=== PATIENT | female | born 1940 | race Caucasian/White ===

== ENCOUNTER → 2016-11-07 | Outpatient (CLI) | payer BC ==
[~2016-11-07] MED LIST: ACET1TAB84 PO; ADVIN50050 INH; ASPI81TA28 PO; B-COTAB18 PO; CHOL1000 PO; CIPR-255 PO; CLIN300C2 PO; GLC/500 PO; GLUCTAB7 PO; GUAI1TAB20 PO; HYDR25TA4 PO; LISI-461 PO; LUTE6TAB PO; METO25TA3 PO; PRED1SUS3 OPR; PRT/20 PO; RANITAB PO
[2016-11-07 10:17] LABS: ESTIMATED AVERAGE GLUCOSE 123 mg/dl; HA1C FLAG Normal (Normal)
--- NOTE | 2016-11-13 14:21 | CODING QUERY MEDICAL NECESSITY ---
CQSUPPORTING DIAGNOSIS NEEDED A supporting diagnosis is required for the test/procedure performed on this patient in order for us to be reimbursed by the patient's insurance. Please provide a supporting diagnosis for the following test/procedure listed below next to the test name along with your signature. *If there is no additional diagnosis for this patient that would support the following test/procedure please document that below next to the test/procedure. Test(s)/Procedure(s) that require a supporting diagnosis: DOS 11/07/16 GLYCATED HEMOGLOBIN TEST Provider Signature: Date: Thank you Dorothy James [facility] Information Management Once completed, please kindly fax back to [phone] For questions please call [phone]
== END | disposition home or self-care (01) ==
LOC: C.LABFOXMH 09:04
PROVIDERS: ATTEND Internal Medicine
DX: E88.81 Metabolic syndrome and other insulin resistance (principal); E11.65 Type 2 diabetes mellitus with hyperglycemia

== ENCOUNTER → 2016-11-27 | Outpatient (CLI) | payer BC ==
[~2016-11-27] MED LIST changes: -ADVIN50050 INH; -CIPR-255 PO; -CLIN300C2 PO; -METO25TA3 PO; -PRT/20 PO
[2016-11-27 08:46] LABS: BLOOD UREA NITROGEN 17 mg/dl (7-18); BUN/CREATININE RATIO 24.2 (10-20); CARBON DIOXIDE 27 mmol/L (21-32); CHLORIDE 105 mmol/L (98-107); CREATININE 0.69 mg/dl (0.60-1.20); GLUCOSE 98 mg/dl (70-99); POTASSIUM 4.2 mmol/L (3.5-5.1); SODIUM 139 mmol/L (136-145)
[2016-11-27 08:50] LABS: CALCIUM 9.2 mg/dl (8.5-10.1)
== END ==
LOC: C.LABFOXMH 08:06
PROVIDERS: ATTEND Internal Medicine
DX: I10 Essential (primary) hypertension (principal)

== ENCOUNTER → 2016-12-10 | Day surgery (SDC) | payer BC ==
[2016-11-21 14:44] VITALS: Ht 170.2 cm; Wt 105.5 kg
[~2016-12-10] VITALS: Ht 170.2 cm; Wt 105.5 kg
[~2016-12-10] MED LIST changes: +500ML BSS 0.3ML EPI 1:1000PF IRRIG ONE; +ACETAMINOPHEN 325 MG TAB PO PRN; +AMVISC PLUS 0.8ML SYRINGE INT OCU ONE; +ATROPINE SULFATE 0.1 MG/ML 5ML SYR IV PRN; +BSS FLUSH ONE; +EpHEDrine SULFATE INJ 50 MG/ML AMP IV PRN; +EpINEphrine INJ 1MG/ML AMP 1 MG/ML AMP ONE; +LACTATED RINGER'S 1000ML 500 ML IV SCH; +LIDOCAINE 3.5% OPH GEL PER APPLICATION CHARGE ONE; +LIDOCAINE HCL 1% MPF 2 ML VIAL ONE; +MIDAZOLAM HCL 1 MG/ML 2ML VIAL ONE; +OCUCOAT 1 ML SOLN IO ONE; +POVIDONE-IODINE OP SOLN 30 ML BTL ONE; +PROPARACAINE 0.5% OP SOLN PER DROP CHARGE OPR SCH; +TOBRAMYCIN/DEXAMETHASONE OPH OINT PER APPLN CHARGE ONE
[2016-12-10] MEDS: PHENYLEPHRINE HCL 2.5% OP SOLN PER DROP CHARGE OPR SCH ×2 (08:45→08:50)
[2016-12-10] MEDS: TROPICAMIDE 1% OP SOLN PER DROP CHARGE OPR SCH ×2 (08:46→08:51)
[2016-12-10] MEDS: CYCLOPENTOLATE HCL 1% OP SOLN PER DROP CHARGE OPR SCH ×2 (08:47→08:52)
[2016-12-10] MEDS: KETOROLAC 0.5% OP SOLN PER DROP CHARGE OPR SCH ×2 (08:48→08:53)
[2016-12-10] MEDS: GATIFLOXACIN OP SOLN PER DROP CHARGE OPR SCH ×2 (08:49→08:59)
--- NOTE | 2016-12-10 09:06 | History & Physical Bridge - SC ---
H&P Re-Evaluation Bridge Note: I have examined the patient, reviewed the History & Physical and in the interval since the performance of the History & Physical I have noted the following changes of clinical significance: Diagnosis: Right Cataract Procedure: Right Cataract Removal with Lens Implant No changes noted
--- NOTE | 2016-12-10 10:20 | Discharge Instructions-SurgCtr ---
Discharge Instructions Date of Service December 10, 2016. Visit Reason for Visit: Cataract Right Eye Discharge Discharge Diagnosis / Problem: cataract Discharge Goals Goal(s): Improve function Medications Stopped Medications Name(s): metformin, last dose 12/07/16 Activity Recommendations Activity Limitations: per Instructions/Follow-up section Anesthesia . Post Anesthesia Instructions: If you have had General Anesthesia or IV Sedation: * Do not drive today. * Resume driving when surgeon permits. * Do not make important decisions or sign legal documents today. * Call surgeon for: 1. Temperature elevations greater than 101 degrees F. 2. Uncontrollable pain. 3. Excessive bleeding. 4. Persistent nausea and vomiting. 5. Medication intolerance (nausea, vomiting or rash). * For nausea and vomiting use only clear liquids such as: tea, soda, bouillon until nausea subsides, then gradually increase diet as tolerated. * If you have any concerns or questions, call your surgeon's office. If physician is unavailable and it is an emergency, call 911 or go to the nearest emergency room. . Instructions / Follow-Up Instructions / Follow-Up ACTIVITY RECOMMENDATIONS: * No strenuous lifting, jogging or running for 4 days * No swimming or yard work for 1 week. * Limited bending is permitted, such as putting on shoes. RETURN TO SCHOOL/WORK: No work until seen by physician in office. MEDICATIONS: Resume previous medications unless instructed otherwise by your surgeon. This includes eye drops for glaucoma. Zymaxid/Gatifloxacin (giles cap) - one drop every 2 hours until bedtime Nevanac/Ilevro/Prolensa/Ketorolac (clark cap) - one drop every 4 hours until bedtime Prednisolone (white/pink cap, SHAKE WELL) - one drop every 2 hours until bedtime Starting tomorrow - all 3 drops every 4 hours until seen in the office Optive drops - as needed for discomfort SPECIAL CARE INSTRUCTIONS: * Wear eyeshield when sleeping, for four nights. * You may wear your own glasses or sunglasses while awake. * You may read or watch TV * You may shower and wash your face, but be gentle around the eye and pat dry. * Blurry vision and mild irritation are normal. * Call office if pain is more severe or vision becomes dark at . FOLLOW UP VISIT: Follow-up with Dr Mcdermott tomorrow. Diet Recommendations Home Diet: resume previous diet Procedures Procedures Performed: Right Cataract Phacoemulsification With Intraocular Lens Implant Pending Studies Studies pending at discharge: no Medical Emergencies . Who to Call and When: Medical Emergencies: If at any time you feel your situation is an emergency, please call 911 immediately. . Non-Emergent Contact Non-Emergency issues call your: Labor Supervisor . . "Provider Documentation" section prepared by Zachary Mcdermott. .
--- NOTE | 2016-12-10 10:21 | [facility] Operative Report ---
Operative Report Date of Service December 10, 2016. Operative Report 1. PREOPERATIVE DIAGNOSIS: Cataract of the right eye. 2. POSTOPERATIVE DIAGNOSIS: Same. 3. PROCEDURE: Phacoemulsification with intraocular lens implantation of the right eye. SURGEON: Dr. Zachary Mcdermott. ANESTHESIA: Topical Lidocaine gel, 1% Non- Preserved intracameral Lidocaine, and monitored intravenous sedation. INDICATIONS FOR THE PROCEDURE: The patient is a 76 - year-old female with a history of cataract of the right eye causing significant visual impairment. The details of the proposed procedure were explained to the patient who asked appropriate questions and following discussion of all risks, benefits and alternatives agreed to have the procedure done. 4. OPERATION AND FINDINGS: DESCRIPTION OF PROCEDURE: After informed consent was obtained, the patient was brought to the Operating [facility] at the [facility]. The patient was placed in a supine position and then the right eye was prepped and draped in the usual sterile fashion for intraocular surgery. A drop of topical Lidocaine gel was placed in the operative eye. A wire lid speculum was then placed in the fornices. A corneal paracentesis was then created temporally. The Non-Preserved Lidocaine was then instilled into the anterior chamber. The anterior chamber was then pressurized with viscoelastic. A 2.0 mm clear corneal incision was then created temporally. A cystotome was inserted into the anterior chamber and used to create a tear in the anterior lens capsule. This capsular tear was then used to create a small flap and the flap was dragged in a counterclockwise direction in order to create a continuous curvilinear capsulorrhexis. Hydrodissection was accomplished with balanced salt solution. Phacoemulsification of the lens nucleus was then performed in a standard [id number]-[id number] technique. The phaco time was 27 seconds with an average power of 11 %. The remaining cortical material was removed using irrigation aspiration. The capsular bag was then filled with viscoelastic. A Bausch & Lomb MI60L +20.5 diopters lens was then loaded into the injector and injected into the capsular bag. The remaining viscoelastic was removed with the irrigation aspiration handpiece. The wound was hydrated and then checked and found to be watertight. The intraocular pressure was checked and found to be adequate. The wire lid speculum was removed and the patient's face was cleaned and dried. TobraDex ointment was placed in the inferior fornix. The patient was discharged to the Recovery Room having tolerated the procedure well. There were no complications. The patient will be seen tomorrow in the office for follow-up. I attest to the content of the Intraoperative Record and any orders documented therein. Any exceptions are noted below.
[2016-12-10 10:23] VITALS: TEMP 36.3
--- NOTE | 2016-12-10 10:25 | Anesthesia Progress Nt - [facility] ---
Anesthesia Post Op Note Date & Time December 10, 2016 at 10:25 Vital Signs Pain Intensity: 0 Vital Signs Past 12 Hours Date Time Temp Pulse Resp B/P Pulse Ox O2 Delivery O2 Flow Rate FiO2 12/10/16 08:36 36.6 65 16 104/70 97 Room Air Notes Mental Status: alert / awake / arousable, participated in evaluation Pt Amnestic to Procedure: Yes Nausea / Vomiting: adequately controlled Pain: adequately controlled Airway Patency, RR, SpO2: stable & adequate BP & HR: stable & adequate Hydration State: stable & adequate Anesthetic Complications: no major complications apparent
[2016-12-10 10:55] VITALS: BP 135/70; PULSE 72; O2SAT 97
== END | disposition home or self-care (01) ==
LOC: X.SURG 08:18
PROVIDERS: ATTEND Ophthalmology
DX: H26.9 Unspecified cataract (principal); I10 Essential (primary) hypertension; J45.909 Unspecified asthma, uncomplicated; E11.36 Type 2 diabetes mellitus with diabetic cataract; G47.33 Obstructive sleep apnea (adult) (pediatric); Z88.0 Allergy status to penicillin; E66.9 Obesity, unspecified; Z68.36 Body mass index [BMI] 36.0-36.9, adult

== ENCOUNTER → 2016-12-31 | Day surgery (SDC) | payer BC ==
[2016-12-26 13:02] VITALS: Ht 170.2 cm; Wt 105.5 kg
[~2016-12-31] VITALS: Ht 170.2 cm; Wt 105.5 kg
[~2016-12-31] MED LIST changes: -PRED1SUS3 OPR; +PROPARACAINE 0.5% OP SOLN PER DROP CHARGE OPL SCH; -PROPARACAINE 0.5% OP SOLN PER DROP CHARGE OPR SCH
[2016-12-31] MEDS: PHENYLEPHRINE HCL 2.5% OP SOLN PER DROP CHARGE OPL SCH ×2 (10:41→10:47)
[2016-12-31] MEDS: TROPICAMIDE 1% OP SOLN PER DROP CHARGE OPL SCH ×2 (10:42→10:48)
[2016-12-31] MEDS: CYCLOPENTOLATE HCL 1% OP SOLN PER DROP CHARGE OPL SCH ×2 (10:43→10:49)
[2016-12-31] MEDS: KETOROLAC 0.5% OP SOLN PER DROP CHARGE OPL SCH ×2 (10:44→10:50)
[2016-12-31] MEDS: GATIFLOXACIN OP SOLN PER DROP CHARGE OPL SCH ×2 (10:46→10:57)
--- NOTE | 2016-12-31 11:16 | History & Physical Bridge - SC ---
H&P Re-Evaluation Bridge Note: I have examined the patient, reviewed the History & Physical and in the interval since the performance of the History & Physical I have noted the following changes of clinical significance: No changes noted
--- NOTE | 2016-12-31 11:45 | Discharge Instructions-SurgCtr ---
Discharge Instructions Date of Service Dec 31, 2016. Visit Reason for Visit: Cataract Left Eye Discharge Discharge Diagnosis / Problem: cataract Discharge Goals Goal(s): Improve function Activity Recommendations Activity Limitations: per Instructions/Follow-up section Anesthesia . Post Anesthesia Instructions: If you have had General Anesthesia or IV Sedation: * Do not drive today. * Resume driving when surgeon permits. * Do not make important decisions or sign legal documents today. * Call surgeon for: 1. Temperature elevations greater than 101 degrees F. 2. Uncontrollable pain. 3. Excessive bleeding. 4. Persistent nausea and vomiting. 5. Medication intolerance (nausea, vomiting or rash). * For nausea and vomiting use only clear liquids such as: tea, soda, bouillon until nausea subsides, then gradually increase diet as tolerated. * If you have any concerns or questions, call your surgeon's office. If physician is unavailable and it is an emergency, call 911 or go to the nearest emergency room. . Instructions / Follow-Up Instructions / Follow-Up ACTIVITY RECOMMENDATIONS: * No strenuous lifting, jogging or running for 4 days * No swimming or yard work for 1 week. * Limited bending is permitted, such as putting on shoes. RETURN TO SCHOOL/WORK: No work until seen by physician in office. MEDICATIONS: Resume previous medications unless instructed otherwise by your surgeon. This includes eye drops for glaucoma. Zymaxid/Gatifloxacin (giles cap) - one drop every 2 hours until bedtime Nevanac/Ilevro/Prolensa/Ketorolac (clark cap) - one drop every 4 hours until bedtime Prednisolone (white/pink cap, SHAKE WELL) - one drop every 2 hours until bedtime Starting tomorrow - all 3 drops every 4 hours until seen in the office Optive drops - as needed for discomfort SPECIAL CARE INSTRUCTIONS: * Wear eyeshield when sleeping, for four nights. * You may wear your own glasses or sunglasses while awake. * You may read or watch TV * You may shower and wash your face, but be gentle around the eye and pat dry. * Blurry vision and mild irritation are normal. * Call office if pain is more severe or vision becomes dark at . FOLLOW UP VISIT: Follow-up with Dr Mcdermott tomorrow. Diet Recommendations Home Diet: resume previous diet Procedures Procedures Performed: Left Eye Cataract Phacoemulsification With Intraocular Lens Implant Pending Studies Studies pending at discharge: no Medical Emergencies . Who to Call and When: Medical Emergencies: If at any time you feel your situation is an emergency, please call 911 immediately. . Non-Emergent Contact Non-Emergency issues call your: Director Of Athletics . . "Provider Documentation" section prepared by Zachary Mcdermott. .
--- NOTE | 2016-12-31 11:46 | [facility] Operative Report ---
Operative Report Date of Service Dec 31, 2016. Operative Report 1. PREOPERATIVE DIAGNOSIS: Cataract of the left eye. 2. POSTOPERATIVE DIAGNOSIS: Same. 3. PROCEDURE: Phacoemulsification with intraocular lens implantation of the left eye. SURGEON: Dr. Zachary Mcdermott. ANESTHESIA: Topical Lidocaine gel, 1% Non- Preserved intracameral Lidocaine, and monitored intravenous sedation. INDICATIONS FOR THE PROCEDURE: The patient is a 76 - year-old female with a history of cataract of the left eye causing significant visual impairment. The details of the proposed procedure were explained to the patient who asked appropriate questions and following discussion of all risks, benefits and alternatives agreed to have the procedure done. 4. OPERATION AND FINDINGS: DESCRIPTION OF PROCEDURE: After informed consent was obtained, the patient was brought to the Operating Room at the [facility]. The patient was placed in a supine position and then the left eye was prepped and draped in the usual sterile fashion for intraocular surgery. A drop of topical Lidocaine gel was placed in the operative eye. A wire lid speculum was then placed in the fornices. A corneal paracentesis was then created temporally. The Non-Preserved Lidocaine was then instilled into the anterior chamber. The anterior chamber was then pressurized with viscoelastic. A 2.0 mm clear corneal incision was then created temporally. A cystotome was inserted into the anterior chamber and used to create a tear in the anterior lens capsule. This capsular tear was then used to create a small flap and the flap was dragged in a counterclockwise direction in order to create a continuous curvilinear capsulorrhexis. Hydrodissection was accomplished with balanced salt solution. Phacoemulsification of the lens nucleus was then performed in a standard pyvmak-yrd-hqmrslm technique. The phaco time was 25 seconds with an average power of 17 %. The remaining cortical material was removed using irrigation aspiration. The capsular bag was then filled with viscoelastic. A Bausch & Lomb MI60L +18.5 diopters lens was then loaded into the injector and injected into the capsular bag. The remaining viscoelastic was removed with the irrigation aspiration handpiece. The wound was hydrated and then checked and found to be watertight. The intraocular pressure was checked and found to be adequate. The wire lid speculum was removed and the patient's face was cleaned and dried. TobraDex ointment was placed in the inferior fornix. The patient was discharged to the Recovery Room having tolerated the procedure well. There were no complications. The patient will be seen tomorrow in the office for follow-up. I attest to the content of the Intraoperative Record and any orders documented therein. Any exceptions are noted below.
[2016-12-31 11:47] VITALS: TEMP 36.3
[2016-12-31 12:10] VITALS: BP 105/66; PULSE 60; O2SAT 99
--- NOTE | 2016-12-31 12:40 | Anesthesia Progress Nt - [facility] ---
Anesthesia Post Op Note Date & Time Dec 31, 2016 at 12:39 Vital Signs Pain Intensity: 0 Vital Signs Past 12 Hours Date Time Temp Pulse Resp B/P (MAP) Pulse Ox O2 Delivery O2 Flow Rate FiO2 12/31/16 12:10 60 16 105/66 (79) 99 Room Air 12/31/16 11:47 36.3 65 16 118/71 (87) 99 Room Air 12/31/16 10:36 36.4 63 20 135/84 (101) 98 Room Air Notes Mental Status: alert / awake / arousable, participated in evaluation Pt Amnestic to Procedure: Yes Nausea / Vomiting: adequately controlled Pain: adequately controlled Airway Patency, RR, SpO2: stable & adequate BP & HR: stable & adequate Hydration State: stable & adequate Anesthetic Complications: no major complications apparent
== END | disposition home or self-care (01) ==
LOC: X.SURG 09:44
PROVIDERS: ATTEND Ophthalmology
DX: H26.9 Unspecified cataract (principal); I10 Essential (primary) hypertension; J45.909 Unspecified asthma, uncomplicated; G47.33 Obstructive sleep apnea (adult) (pediatric); Z98.41 Cataract extraction status, right eye; Z68.36 Body mass index [BMI] 36.0-36.9, adult; Z96.643 Presence of artificial hip joint, bilateral; Z88.0 Allergy status to penicillin

== ENCOUNTER → 2017-03-11 | Outpatient (CLI) | payer BC ==
[~2017-03-11] MED LIST changes: -500ML BSS 0.3ML EPI 1:1000PF IRRIG ONE; -ACETAMINOPHEN 325 MG TAB PO PRN; -AMVISC PLUS 0.8ML SYRINGE INT OCU ONE; -ATROPINE SULFATE 0.1 MG/ML 5ML SYR IV PRN; -BSS FLUSH ONE; -EpHEDrine SULFATE INJ 50 MG/ML AMP IV PRN; -EpINEphrine INJ 1MG/ML AMP 1 MG/ML AMP ONE; -LACTATED RINGER'S 1000ML 500 ML IV SCH; -LIDOCAINE 3.5% OPH GEL PER APPLICATION CHARGE ONE; -LIDOCAINE HCL 1% MPF 2 ML VIAL ONE; -MIDAZOLAM HCL 1 MG/ML 2ML VIAL ONE; -OCUCOAT 1 ML SOLN IO ONE; -POVIDONE-IODINE OP SOLN 30 ML BTL ONE; -PROPARACAINE 0.5% OP SOLN PER DROP CHARGE OPL SCH; -TOBRAMYCIN/DEXAMETHASONE OPH OINT PER APPLN CHARGE ONE
[2017-03-11 10:34] LABS: BLOOD UREA NITROGEN 14 mg/dl (7-18); BUN/CREATININE RATIO 17.3 (10-20); CARBON DIOXIDE 27 mmol/L (21-32); CHLORIDE 106 mmol/L (98-107); CREATININE 0.79 mg/dl (0.60-1.20); GLUCOSE 90 mg/dl (70-99); POTASSIUM 4.6 mmol/L (3.5-5.1); SODIUM 137 mmol/L (136-145)
[2017-03-11 10:38] LABS: ESTIMATED AVERAGE GLUCOSE 126 mg/dl; HA1C FLAG Normal (Normal)
== END | disposition home or self-care (01) ==
LOC: C.LABFOXMH 08:53
PROVIDERS: ATTEND Internal Medicine
DX: E11.9 Type 2 diabetes mellitus without complications (principal)

== ENCOUNTER → 2017-04-08 | Outpatient (CLI) | payer BC ==
--- NOTE | 2017-04-09 07:56 | MAMMOGRAPHY REPORT ---
BILATERAL DIGITAL SCREENING MAMMOGRAM WITH CAD: 04/08/2017 CLINICAL HISTORY: Routine screening. Patient has no complaints. TECHNIQUE: Bilateral CC and MLO views were obtained. Current study was also evaluated with a Compute r Aided Detection (CAD) system. COMPARISON: Comparison is made to exams dated: 04/05/2016 mammogram, 04/04/2015 mammogram, 12/01/2013 m ammogram, 11/26/2012 mammogram, 11/12/2011 mammogram, and 01/04/2011 mammogram - [facility]. BREAST COMPOSITION: There are scattered areas of fibroglandular density in both breasts. FINDINGS: There is a round, 5.4 mm nodular asymmetry in the lateral, middle to posterior right breas t on the CC view, and a 4.9 mm nodular asymmetry in the middle one third of the right breast along th e posterior nipple line on the CC view. These are not definitely seen on the MLO view but are newly visualized comparing to prior mammograms. Additional spot compression tomosynthesis views and possib le ultrasound are recommended. There are a few benign rim calcifications in the breasts. No other suspicious mass, architectural dis tortion or cluster of microcalcifications is seen. IMPRESSION: ACR BI-RADS CATEGORY 0: INCOMPLETE EVALUATION: NEED ADDITIONAL IMAGING EVALUATION The 5.4 mm rounded nodular asymmetry in the lateral right breast, and 4.9 mm nodular asymmetry along the posterior nipple line in the right breast need additional imaging evaluation. The patient will be called to schedule an appointment. Approximately 10% of breast cancers are not detected with mammography. A negative mammographic report should not delay biopsy if a clinically suggestive mass is present. Isela Caal M.D. ay/:04/08/2017 15:58:59 Bulk Receiver: Maeve HEIN(R)(M), [facility] letter sent: Addl Imaging 0 BI-RADS Code: ACR BI-RADS Category 0: Incomplete Evaluation: Need Additional Imaging Evaluation
== END | disposition home or self-care (01) ==
LOC: C.MAMM 14:43
PROVIDERS: ATTEND Obstetrics & Gynecology
DX: Z12.31 Encounter for screening mammogram for malignant neoplasm of breast (principal); N64.89 Other specified disorders of breast

== ENCOUNTER → 2017-04-18 | Outpatient (CLI) | payer BC ==
--- NOTE | 2017-04-18 15:48 | MAMMOGRAPHY REPORT ---
UNILATERAL RIGHT DIGITAL DIAGNOSTIC MAMMOGRAM TOMOSYNTHESIS WITH CAD AND TARGETED RIGHT ULTRASOUND: 1 CLINICAL HISTORY: Callback from screening mammogram for right breast asymmetries. TECHNIQUE: Breast tomosynthesis in addition to standard 2D mammography was performed. Current study was also evaluated with a Computer Aided Detection (CAD) system. Spot compression right CC and MLO 2 -D and tomosynthesis images were obtained. COMPARISON: Comparison is made to exams dated: 04/08/2017 mammogram, 04/05/2016 mammogram, 04/04/2015 m ammogram, 12/01/2013 mammogram, 11/26/2012 mammogram, and 11/12/2011 mammogram - [facility]. BREAST COMPOSITION: There are scattered areas of fibroglandular density in the right breast. FINDINGS: The previously described nodular asymmetry seen within the right lateral posterior breast is less prominent on the additional spot compression view, with a possible round partially circumscri bed and partially obscured mass seen on the tomosynthesis images in the right upper outer quadrant in this region on the spot compression views. The nodular density appears similar to some of the prior exams including the spot compression cc view from the November 2011 exam. The other asymmetry within the right breast along the posterior nipple line on the cc view effaces to a baseline appearance on the additional views, and appears similar to multiple prior exams including the 2008 exam, and has the ap pearance of normal fibroglandular tissue on the tomosynthesis images. Targeted ultrasound was performed of the right breast of the region of the right lateral posterior br east asymmetry. In the right breast at 9:00, 9 cm from the nipple, there is an oval circumscribed an echoic mass which measures 5 x 3 mm. This is felt to correspond with the mammographic mass and is be nign and compatible with a simple cyst. Incidentally seen in the right breast at 10:00 far laterally is a morphologically normal intramammary lymph node measuring 8 x 7 mm. No suspicious solid masses were evident. IMPRESSION: ACR BI-RADS CATEGORY 2: BENIGN, TARGETED ULTRASOUND ACR BI-RADS CATEGORY 2: BENIGN 1. Right breast asymmetry along the posterior nipple line effaces to a baseline appearance on the ad ditional views and is benign and compatible with normal fibroglandular tissue. 2. Right lateral posterior breast asymmetry appears similar to prior exams on the additional views i ncluding the November 2011 exam. A benign 5 mm cyst is seen in the right breast at 9:00 on ultrasound, wh ich is felt to correspond with the stable mammographic finding. There is no mammographic or targeted sonographic evidence of malignancy. A 1 year screening mammogram is recommended. The patient has been verbally notified of the results. Approximately 10% of breast cancers are not detected with mammography. A negative mammographic report should not delay biopsy if a clinically suggestive mass is present. Angelica Zazueta M.D. ah/:04/18/2017 11:28:52 Cardiac Technologist: Sean HEIN(Jacinto)(M), [facility] letter sent: Normal 1/2 BI-RADS Code: ACR BI-RADS Category 2: Benign Ultrasound BI-RADS: ACR BI-RADS Category 2: Benign
== END | disposition home or self-care (01) ==
LOC: C.MAMM 10:52
PROVIDERS: ATTEND Obstetrics & Gynecology
DX: N64.89 Other specified disorders of breast (principal); N60.01 Solitary cyst of right breast

== ENCOUNTER → 2017-07-21 | Outpatient (CLI) | payer BC ==
[2017-07-21 09:32] LABS: ALBUMIN 3.3 gm/dl (3.4-5.0); ALT/SGPT 27 U/L (12-78); BLOOD UREA NITROGEN 17 mg/dl (7-18); CARBON DIOXIDE 28 mmol/L (21-32); CREATININE 0.77 mg/dl (0.60-1.20); GLUCOSE 96 mg/dl (70-99); POTASSIUM 4.3 mmol/L (3.5-5.1); SODIUM 138 mmol/L (136-145)
[2017-07-21 09:36] LABS: ALKALINE PHOSPHATASE 79 U/L (45-117); AST/SGOT 17 U/L (15-37); CHOLESTEROL 165 mg/dl (0-200); LDL CHOLESTEROL CALCULATED 84 mg/dl
[2017-07-21 09:57] LABS: HEMOGLOBIN A1C 5.9 % (4.5-5.6)
== END | disposition home or self-care (01) ==
LOC: C.LABFOXMH 08:39
PROVIDERS: ATTEND Internal Medicine
DX: E11.9 Type 2 diabetes mellitus without complications (principal)

== ENCOUNTER → 2017-08-05 | Outpatient (CLI) | payer BC | END | disposition home or self-care (01) | LOC: C.LABFOXMH 16:09 | PROVIDERS: ATTEND Internal Medicine | DX: R35.0 Frequency of micturition (principal); R10.9 Unspecified abdominal pain ==

== ENCOUNTER → 2017-11-27 | Outpatient (CLI) | payer BC ==
[2017-11-27 10:24] LABS: BLOOD UREA NITROGEN 16 mg/dl (7-18); CALCIUM 8.9 mg/dl (8.5-10.1); CARBON DIOXIDE 28 mmol/L (21-32); CREATININE 0.82 mg/dl (0.60-1.20); GLUCOSE 95 mg/dl (70-99); POTASSIUM 4.2 mmol/L (3.5-5.1); SODIUM 138 mmol/L (136-145)
[2017-11-27 11:15] LABS: HEMOGLOBIN A1C 5.8 % (4.5-5.6)
== END | disposition home or self-care (01) ==
LOC: C.LABFOXMH 09:31
PROVIDERS: ATTEND Internal Medicine
DX: E11.9 Type 2 diabetes mellitus without complications (principal)

== ENCOUNTER 2018-08-04 13:10 | Inpatient (IN) ==
[2018-08-04 13:45] LABS: Basophils # (auto) 0.05 K/uL (0-0.2); Basophils % (auto) 0.5 %; Eosinophils # (auto) 0.12 K/uL (0-0.5); Eosinophils % (auto) 1.3 %; Hematocrit (blood only) 40.7 % (37-47); Hemoglobin 13.2 g/dL (12.0-16.0); Immature Granulocytes # (auto) 0.02 K/uL (0.00-0.02); Immature Granulocytes % (auto) 0.2 %; Lymphocytes % (auto) 26.9 %; Mean Corpuscular Hgb Conc 32.4 g/dL (32-36); Mean Corpuscular Volume 92.9 fL (80-100); Mean Platelet Volume 11.6 fL (7.4-10.4); Monocytes # (auto) 0.54 K/uL (0.11-0.59); Monocytes % (auto) 5.8 %; Neutrophils # (auto) 6.08 K/uL (1.4-6.5); Neutrophils % (auto) 65.3 %; Platelet Count 249 K/uL (130-400); RDW Coefficient of Variation 13.7 % (11.5-14.5); RDW Standard Deviation 46.6 fL (36.4-46.3); Red Blood Count 4.38 M/uL (4.2-5.4); White Blood Count 9.31 K/uL (4.8-10.8)
[2018-08-04 13:54] LABS: Albumin Level 3.6 gm/dl (3.4-5.0); BUN Creatinine Ratio 21.9 (10-20); Calcium 9.1 mg/dl (8.5-10.1); Creatinine Clr Calc Pharmacy 54.3 ml/min; Est GFR (African American) 57.1; Est GFR (Non-African American) 49.3; Magnesium 2.3 mg/dl (1.8-2.4); Partial Thromboplastin Time 26.1 Seconds (21.0-31.0); Prothrombin Time 10.2 Seconds (9.0-12.0)
--- NOTE | 2018-08-04 13:59 | XRay Report ---
XR chest 1V portable CLINICAL HISTORY: weakness COMPARISON STUDY: 07/21/2018 FINDINGS: The heart remains enlarged. There is no focal pulmonary consolidation. There is no failure. There are no pleural effusions.[ IMPRESSION: Cardiomegaly. No acute findings. Electronically signed by: Fuad Davila M.D. 08/04/2018 1:58 PM
[2018-08-04 14:05] LABS: Albumin Globulin Ratio 0.9 (0.9-2); Bilirubin,Total 0.4 mg/dl (0.2-1); Globulin 4.1 gm/dl (2.5-4.0); Total Protein 7.7 gm/dl (6.4-8.2)
--- NOTE | 2018-08-04 14:44 | History & Physical Report ---
Date of Service August 04, 2018 Assessment & Plan (1) Third degree heart block: plan for pacemaker tomorrow NPO after midnight admit to ICU with pacer pads currently patient has systolic pressure in 140's, mentating normally (2) SOB (shortness of breath): likely due to bradycardia cannot increase cardiac output when exercising should improve with pacer (3) Idiopathic cardiomyopathy: diagnosed on outpatient echo euvolemic on exam (4) HTN (hypertension): BP stable takes lisinopril and HCTZ at home hold these for time being (5) DM type 2 (diabetes mellitus, type 2): hold Metformin use Novolog PRN diabetic diet History of Present Illness Chief Complaint: I feel short of breath Primary Care Provider: [facility] 78 yo female with limited medical history of HTN and DM type II, was recently diagnosed with 2nd degree AV block type II with plans for a pacemaker on with Dr. Smith. Over the past two days she has noticed more dyspnea, no exercise tolerance, gets short of breath just walking around house. She had a single episode of chest pain when walking but resolved very quickly. She took her pulse this morning out of curiosity and it was in the 30's. Her friend advised her to come to the ED immediately. She is her with her . Her pulse in the ED has been 30-40's. EKG now shows complete AV block with dissociation. Her blood pressure has been normal, 140's systolic. She feels fine laying down in bed, she says she is hungry. Medical history significant for hypertension, DM type II. Family history significant for stroke in her mother, father lived to be 99, grandmother lived to 103. one brother from multiple sclerosis and another brother has COPD no history of smoking or heavy alcohol use ED physician talked with Dr. Smith over the phone, plan for pacer tomorrow Allergies Allergy/AdvReac Type Severity Reaction Status Date / Time bee venom protein (honey bee) Allergy Intermediate HIVES Verified 12/31/16 10:33 ampicillin Allergy Unknown FLU-LIKE Verified 12/31/16 10:33 SYMPTOMS Penicillins Allergy Unknown FAMILY HX Verified 12/31/16 10:33 - PT HAS NEVER TAKEN zolpidem AdvReac Intermediate "very Verified 12/31/16 10:33 sedated, lasted too long" Home Medications Home Medications Medication Instructions Recorded Confirmed Type ASPIRIN (ASPIRIN EC) 0.5 tab PO QAM #0 07/24/15 History B-COMPLEX VITAMINS (VITAMIN B 1 tab PO QPM #0 07/24/15 History COMPLEX) [id number] C- 1 tab PO BID #0 07/24/15 History (GLUCOSAMINE CHONDROITIN) HYDROCHLOROTHIAZIDE (HCTZ) 25 mg PO QAM #0 tab 07/24/15 History LUTEIN-ZEAXANTHIN (LUTEIN 1 tab PO QPM #0 07/24/15 History W/ZEAXANTHIN) Acetaminophen (Tylenol Arthritis 650 mg PO Q8H PRN #0 11/21/16 History Ext Rel) CHOLECALCIFEROL (VITAMIN D3) 1 tab PO QPM #0 11/21/16 History GUAIFENESIN (CHEST CONGESTION 1 tab PO Q4H PRN #0 11/21/16 History RELIEF) Lisinopril (Zestril) 10 mg PO QAM #0 11/21/16 History METFORMIN HCL (GLUCOPHAGE) 500 mg PO BID #0 11/21/16 History RANITIDINE HCL (RANITIDINE ACID 1 tab PO DAILY PRN #0 11/21/16 History CLAIMS CONFIGURATION ANALYST) Past Med/Surg History Medical History Idiopathic cardiomyopathy (Chronic) DM type 2 (diabetes mellitus, type 2) HTN (hypertension) Family History Other Multiple sclerosis Stroke Social History current occupational status: retired Feels Safe at Home: Yes Smoking Status: Never smoker Review of Systems All systems reviewed & are unremarkable except as noted in HPI & below Respiratory: + dyspnea and + dyspnea on exertion Cardiovascular: + chest pain Musculoskeletal: + joint pain Physical Exam 2 Vital Signs (Past 24 Hours): Last Vital Signs Temp 36.5 C 08/04/18 13:17 Pulse 41 L 08/04/18 13:32 Resp 16 08/04/18 14:02 BP 146/72 H 08/04/18 14:02 Pulse Ox 94 08/04/18 14:02 Constitutional: WD/WN, vitals as above Eyes: PERRL, conjunctivae normal, anicteric sclerae ENMT: external ear and nose normal, oropharynx normal Neck: trachea midline, no thyromegaly Respiratory: normal respiratory effort, lungs clear to auscultation Cardiovascular: Rate/Rhythm: + bradycardic; + abnormal rhythm (irregular irregular) Heart Sounds: normal S1 and normal S2; no murmur Vessels: normal peripheral pulses; no JVD and no carotid bruit Chest (Breasts): Chest: normal inspection of chest Gastrointestinal (Abdomen): normal bowel sounds, soft, nontender, no hepatosplenomegaly Musculoskeletal: no cyanosis or clubbing, extremities motor strength 5/5 Skin: no rashes, warm and dry Neurologic: patellar DTR's 2+ bilat, sensation intact and PERRL, EOMI, accommodation nl, no face palsy, no dysarthria Psychiatric: A+Ox3, euthymic affect Lymphatic: no cervical or axillary lymphadenopathy Results & Data Laboratory Results Laboratory Results - last 24 hr 08/04/18 08/04/18 08/04/18 13:15 13:15 13:15 WBC 9.31 RBC 4.38 Hgb 13.2 Hct 40.7 MCV 92.9 MCH 30.1 MCHC 32.4 RDW Std Deviation 46.6 H RDW Coeff of Uvaldo 13.7 Plt Count 249 MPV 11.6 H Immature Gran % (Auto) 0.2 Neut % (Auto) 65.3 Lymph % (Auto) 26.9 [place] % (Auto) 5.8 Eos % (Auto) 1.3 Baso % (Auto) 0.5 Immature Gran # (Auto) 0.02 Neut # (Auto) 6.08 Lymph # (Auto) 2.50 [place] # (Auto) 0.54 Eos # (Auto) 0.12 Baso # (Auto) 0.05 PT 10.2 INR 1.0 APTT 26.1 PTT Ratio 1.0 Sodium 137 Potassium 4.0 Chloride 104 Carbon Dioxide 24 Anion Gap 10.0 BUN 24 H Creatinine 1.09 Est Cr Clr Drug Dosing 54.3 Est GFR ( Amer) 57.1 Est GFR (Non-Af Amer) 49.3 BUN/Creatinine Ratio 21.9 H Glucose 116 H Calcium 9.1 Magnesium 2.3 Total Bilirubin 0.4 AST 21 ALT 26 Alkaline Phosphatase 82 Total Protein 7.7 Albumin 3.6 Globulin 4.1 H Albumin/Globulin Ratio 0.9 TSH 2.090 Diagnostic Findings XR chest 1V portable CLINICAL HISTORY: weakness COMPARISON STUDY: 07/21/2018 FINDINGS: The heart remains enlarged. There is no focal pulmonary consolidation. There is no failure. There are no pleural effusions.[ IMPRESSION: Cardiomegaly. No acute findings. ECG Indication: bradycardia Rhythm: AV dissociation Code Status & VTE Plan Code Status full code VTE Prophylaxis Plan VTE Prophylaxis will be ordered: No
--- NOTE | 2018-08-04 14:50 | Emergency Department Note ---
Entered by Monae Robledo acting as a scribe for History of Present Illness General Chief complaint: Bradycardia Time Seen by Provider: 08/04/18 13:17 Source: patient History of Present Illness Provider complaint: shortness of breath Onset (ago): day(s) 2 Location: chest Pain Consistency: + other (worsened) Quality: + other (shortness of breath) Associated symptoms: + weakness and + other (bradycardia) The patient is a 78 year old female who presents to the Emergency Room with complaints of shortness of breath beginning 2 days ago. She states that she has been short of breath with exertion since July 05 but states that it went away for awhile and then worsened yesterday. The patient states that for 5 years she felt that she has not been getting enough blood supply to her legs. She reports that over the last year she felt like her arms were becoming weak. She also reports that her heart rate was low today. The patient states that she saw a cardiology PA who did an ECG and blood tests and also set her up for a stress test. She reports that she was told that she may have fluid on her lungs and states that she was told that she needed to have a holter monitor for 24 hours. The patient states that she did get a report from the holter monitor. She reports that her ECG prior to the stress test on 07/30 showed that the patient needs a pacemaker. She states that she was scheduled for a pacemaker in 2 days. She states that her physician and petroleum plant operator referred her to the ED today. Home Medications Home Medications Medication Instructions Recorded Confirmed Type acetaminophen [Tylenol Arthritis 650 mg PO QID 08/04/18 08/04/18 History Pain] aspirin 81 mg PO QAM 08/04/18 08/04/18 History cholecalciferol (vitamin D3) 1,000 unit PO HS 08/04/18 08/04/18 History [Vitamin D3] [id number] 1 cap PO BID 08/04/18 08/04/18 History [Glucosamine Chondroitin PLUS] hydrochlorothiazide 25 mg PO QAM 08/04/18 08/04/18 History lisinopril 10 mg PO QAM 08/04/18 08/04/18 History lutein-zeaxanthin 1 tab PO HS 08/04/18 08/04/18 History metformin 500 mg PO BIDM 08/04/18 08/04/18 History omega 8-lcm-eeu-fish oil [Fish Oil] 1 cap PO HS 08/04/18 08/04/18 History ranitidine HCl 150 mg PO DAILY PRN 08/04/18 08/04/18 History Allergies Allergy/AdvReac Type Severity Reaction Status Date / Time bee venom protein (honey bee) Allergy Intermediate HIVES Verified 08/04/18 15:20 ampicillin Allergy Unknown FLU-LIKE Verified 08/04/18 15:20 SYMPTOMS Penicillins Allergy Unknown FAMILY HX Verified 08/04/18 15:20 - PT HAS NEVER TAKEN zolpidem AdvReac Intermediate "very Verified 08/04/18 15:20 sedated, lasted too long" Past Med/Surg History Medical History DM type 2 (diabetes mellitus, type 2) HTN (hypertension) Second degree heart block Sleep apnea Venous insufficiency Family History Other Multiple sclerosis Stroke Social History current occupational status: retired Feels Safe at Home: Yes Smoking Status: Never smoker Review of Systems See HPI for pertinent positives & negatives. and A total of 10 systems reviewed and were otherwise negative Physical Exam Vital Signs Vital Signs - 24 hr 08/04/18 13:17 08/04/18 13:31 08/04/18 13:32 Temperature 36.5 C Temperature Source Oral Sepsis Recent Fever Within 48 Hours No Sepsis New/Unexplained Change in Mental Status No Sepsis Action Taken by Nursing No Action Required Pulse Rate 43 L 33 L Pulse Rate [Apical] 41 L Respiratory Rate 15 15 16 Respiratory Depth Normal Blood Pressure 161/61 H 144/59 H Blood Pressure [Right Arm] 144/59 H Blood Pressure Mean 94 87 Blood Pressure Mean [Right Arm] 87 Pulse Oximetry 97 96 96 Oxygen Delivery Method Room Air Room Air Room Air 08/04/18 14:02 08/04/18 15:06 Temperature Temperature Source Sepsis Recent Fever Within 48 Hours Sepsis New/Unexplained Change in Mental Status Sepsis Action Taken by Nursing Pulse Rate Pulse Rate [Apical] 32 L Respiratory Rate 16 20 Respiratory Depth Blood Pressure 146/72 H Blood Pressure [Right Arm] 141/57 H Blood Pressure Mean 96 Blood Pressure Mean [Right Arm] 85 Pulse Oximetry 94 98 Oxygen Delivery Method Room Air GENERAL: Patient is in no acute distress. HEENT: No acute trauma, normocephalic atraumatic, mucous membranes moist, no nasal congestion, no scleral icterus. NECK: No stridor, no adenopathy, no meningismus, trachea is midline. LUNGS: Clear to auscultation bilaterally, no wheeze, no rhonchi, breath sounds equal. HEART: Markedly bradycardic with a regular rhythm. No murmurs. ABDOMEN: Soft, nontender, bowel sounds positive, no hernias, no peritonitis. EXTREMITIES: No cyanosis or edema, full range of motion of all the joints without pain or difficulty, no signs for acute trauma. NEUROLOGIC: Oriented x 3, no acute motor or sensory deficits, no focal weakness. SKIN: No rash, no jaundice, no diaphoresis. Course 1320: Past medical records reviewed. The patient was evaluated in room B7, and a complete history and physical examination were performed. 1334: I discussed the patient's case with Dr. Laird who said that he will come and see the patient. 1339: The external pacemaker pads were applied. 1349: I discussed the patient's case with Dr. Rm who has accepted the patient. 1356: I discussed the patient's case with Dr. Will Agee who will evaluate the patient for further management. 1414: I updated the patient who verbalized agreement and understanding of the treatment plan. Consultations Consultation #1: Dr. Laird Time: 13:34 Consultation #2: Dr. Rm Time: 13:49 Consultation #3: Dr. Will Agee Time: 13:56 Medical Decision Making Differential Diagnosis The patient is a 78 year old female who presents to the ED with shortness of breath. Differential diagnosis includes third degree heart block, first or second degree heart block, medication reaction, electrolyte imbalance, anemia, OK, and CHF. Medical Records Attestation: I reviewed the patient's medical records. Home Medications Current Medication List: was personally reviewed by me Laboratory Data Attestation: I reviewed the patient's lab results. Result diagrams: 08/04/18 13:15 08/04/18 13:15 Lab Results 08/04/18 08/04/18 08/04/18 Range/Units 13:15 13:15 13:15 WBC 9.31 (4.8-10.8) K/uL RBC 4.38 (4.2-5.4) M/uL Hgb 13.2 (12.0-16.0) g/dL Hct 40.7 (37-47) % MCV 92.9 (80-100) fL MCH 30.1 (25-34) pg MCHC 32.4 (32-36) g/dL RDW Std Deviation 46.6 H (36.4-46.3) fL RDW Coeff of Uvaldo 13.7 (11.5-14.5) % Plt Count 249 (130-400) K/uL MPV 11.6 H (7.4-10.4) fL Immature Gran % (Auto) 0.2 % Neut % (Auto) 65.3 % Lymph % (Auto) 26.9 % [place] % (Auto) 5.8 % Eos % (Auto) 1.3 % Baso % (Auto) 0.5 % Immature Gran # (Auto) 0.02 (0.00-0.02) K/uL Neut # (Auto) 6.08 (1.4-6.5) K/uL Lymph # (Auto) 2.50 (1.2-3.4) K/uL [place] # (Auto) 0.54 (0.11-0.59) K/uL Eos # (Auto) 0.12 (0-0.5) K/uL Baso # (Auto) 0.05 (0-0.2) K/uL PT 10.2 (9.0-12.0) Seconds INR 1.0 (0.9-1.1) APTT 26.1 (21.0-31.0) Seconds PTT Ratio 1.0 Sodium 137 (136-145) mmol/L Potassium 4.0 (3.5-5.1) mmol/L Chloride 104 (98-107) mmol/L Carbon Dioxide 24 (21-32) mmol/L Anion Gap 10.0 (3-11) BUN 24 H (7-18) mg/dl Creatinine 1.09 (0.6-1.2) mg/dl Est Cr Clr Drug Dosing 54.3 ml/min Est GFR ( Amer) 57.1 Est GFR (Non-Af Amer) 49.3 BUN/Creatinine Ratio 21.9 H (10-20) Glucose 116 H (70-99) mg/dl Calcium 9.1 (8.5-10.1) mg/dl Magnesium 2.3 (1.8-2.4) mg/dl Total Bilirubin 0.4 (0.2-1) mg/dl AST 21 (15-37) U/L ALT 26 (12-78) U/L Alkaline Phosphatase 82 (45-117) U/L Troponin I (0-0.045) ng/ml Total Protein 7.7 (6.4-8.2) gm/dl Albumin 3.6 (3.4-5.0) gm/dl Globulin 4.1 H (2.5-4.0) gm/dl Albumin/Globulin Ratio 0.9 (0.9-2) TSH 2.090 (0.300-4.500) uIu/ml 08/04/18 Range/Units 15:51 WBC (4.8-10.8) K/uL RBC (4.2-5.4) M/uL Hgb (12.0-16.0) g/dL Hct (37-47) % MCV (80-100) fL MCH (25-34) pg MCHC (32-36) g/dL RDW Std Deviation (36.4-46.3) fL RDW Coeff of Uvaldo (11.5-14.5) % Plt Count (130-400) K/uL MPV (7.4-10.4) fL Immature Gran % (Auto) % Neut % (Auto) % Lymph % (Auto) % [place] % (Auto) % Eos % (Auto) % Baso % (Auto) % Immature Gran # (Auto) (0.00-0.02) K/uL Neut # (Auto) (1.4-6.5) K/uL Lymph # (Auto) (1.2-3.4) K/uL [place] # (Auto) (0.11-0.59) K/uL Eos # (Auto) (0-0.5) K/uL Baso # (Auto) (0-0.2) K/uL PT (9.0-12.0) Seconds INR (0.9-1.1) APTT (21.0-31.0) Seconds PTT Ratio Sodium (136-145) mmol/L Potassium (3.5-5.1) mmol/L Chloride (98-107) mmol/L Carbon Dioxide (21-32) mmol/L Anion Gap (3-11) BUN (7-18) mg/dl Creatinine (0.6-1.2) mg/dl Est Cr Clr Drug Dosing ml/min Est GFR ( Amer) Est GFR (Non-Af Amer) BUN/Creatinine Ratio (10-20) Glucose (70-99) mg/dl Calcium (8.5-10.1) mg/dl Magnesium (1.8-2.4) mg/dl Total Bilirubin (0.2-1) mg/dl AST (15-37) U/L ALT (12-78) U/L Alkaline Phosphatase (45-117) U/L Troponin I < 0.015 (0-0.045) ng/ml Total Protein (6.4-8.2) gm/dl Albumin (3.4-5.0) gm/dl Globulin (2.5-4.0) gm/dl Albumin/Globulin Ratio (0.9-2) TSH (0.300-4.500) uIu/ml Imaging Data Radiologist's Impression: Radiology results as stated below per my review and the radiologist's interpretation: XR chest 1V portable CLINICAL HISTORY: weakness COMPARISON STUDY: 07/21/2018 FINDINGS: The heart remains enlarged. There is no focal pulmonary consolidation. There is no failure. There are no pleural effusions.[ IMPRESSION: Cardiomegaly. No acute findings. Electronically signed by: Fuad Davila M.D. 08/04/2018 1:58 PM ECG Data Attestation: I personally reviewed and interpreted this ECG as follows: Indication: bradycardia Rate (beats per minute): 35 Rhythm: other (third degree heart block ) Findings: + RBBB; no ST elevation Blood Pressure Blood Pressure Findings: Elevated blood pressure Blood Pressure Disposition: further management by hospitalist [facility] Narrative There is no leukocytosis or concerning anemia. No significant electrolyte abnormality, kidney failure or hepatitis. The patient appears to be in a euthyroid state. There is no coagulopathy. Chest x-ray shows some mild cardiomegaly, no CHF or pneumonia. EKG shows a third-degree heart block. There is a right bundle branch block. No evidence for ischemia. Cardiac enzyme testing x1 is not consistent with acute cardiac injury. The patient presents with dyspnea on exertion and weakness. She had a low pulse noted as an outpatient. She was scheduled for a pacemaker in 2 days but things worsened in the last 12 hours and she was referred to the ED. Patient requires a hospital stay and a pacemaker. She is in a third-degree heart block. Despite the low heart rate, she has an adequate blood pressure and she is comfortable as long as she is lying on the stretcher. Exertion is when she feels dyspnea. I did speak with the on-call petroleum plant operator, I talked with the on-call intensive care unit physician. I spoke to case management and the on-call hospitalist. The patient requires hospitalization. There is no need for an emergent pacemaker as per cardiology. The patient was watched closely here in the ED. Pacemaker pads were applied. The patient did not require external pacing during her stay in the ED. Impression & Plan Third degree heart block, SOB (shortness of breath) Critical Care Time I have personally spent greater than 35 minutes of critical care time in the direct management of this patient. This includes bedside care, interpretation of diagnostic studies, and testing, discussion with consultants, patient, and family members, and other required patient management activities. This 35 minutes is in excess of all separately billable procedures. Critical Care Time: Yes Total Critical Care Time: 35 Discharge Plan Visit Data *Final* Discharge Date/Time: 08/04/18 15:15 Chief Complaint: Bradycardia ED Provider: Simon Rodriguez Discharge Problem: Third degree heart block, SOB (shortness of breath) Patient Disposition: Being Evaluated by Hospitalist Discharge Instructions Interventions: ED Discharge Assessment Last Done: 08/04/18 15:15 The scribe's documentation has been prepared under my direction and personally reviewed by me in its entirety. I confirm that the note above accurately reflects all work, treatment, procedures, and medical decision making performed by me.
[2018-08-04] MEDS ORDERED: ICU PROTOCOL FOR HYPERGLYCEMIA PRN (15:30)
--- NOTE | 2018-08-04 15:30 | Cardiology Consultation ---
Date of Consultation August 04, 2018 Assessment & Plan (1) Third degree heart block: We discussed the diagnosis. She has AV dissociation/third degree heart block, and is symptomatic with ambulation. Because she is asymptomatic and mentating well with adequate blood pressure while sitting, would recommend placement of pacer pads in case transcutaneous pacing is necessary. There is no indication at this time for urgent temporary transvenous pacemaker placement. Recommend permanent pacemaker placement. [place] [employer] Former, Dr. Smith, was personally contacted via telephone and he plans on performing pacemaker placement tomorrow. Normal left ventricular systolic function noted on outpatient echo from 07/30/2018. TSH normal. (2) Near syncope: Symptoms are likely secondary to complete heart block. Pacemaker placement recommended as above. (3) SOB (shortness of breath): She appears euvolemic. Symptoms are likely related to bradycardia from her ventricular escape rhythm, secondary to complete heart block. Pacemaker placement should significantly improve her symptoms. (4) disposition: Cardiology will continue to follow. She will be seen by Dr. Smith electrophysiology. Plan of care discussed with Dr. Rider of the primary hospitalist service. Complete bed rest recommended to patient and also Dr. Rider to avoid fall and injury. NPO after midnight. Highly complex medical issues. Thank you for allowing me to participate in the care of your patient. Please call for any other questions or concerns. Sincerely, Javier Andrews M.D. History of Present Illness Reason for Consultation: Complete heart block Requesting Physician: Dr. Rodriguez Attending Physician: Dr. Rider History of Present Illness Mrs Cabral is a pleasant 78-year-old female with a history significant for symptomatic bradycardia with 2-1 AV block, hypertension, and venous insufficiency. She also has sleep apnea but does not use CPAP. Her primary equities analyst is Dr. Franco. She has been experiencing dyspnea with exertion chronically but on 07/05/2019, she had a significant worsening of her symptoms. She felt near syncopal walking even 10 feet, with dyspnea. Because of this dramatic change in her symptoms, she underwent evaluation. She has had a Holter monitor on 07/22/2018 which demonstrated nearly 50% of the recording notable for 2-1 AV block. Her symptomatic episodes that she entered in her diary, correlated with her second- degree heart block. She was set up for a dobutamine stress echo on 07/30/2018 but given her Holter findings, it was felt as though her symptoms were related to second-degree heart block and she was therefore set up for a pacemaker implantation to be performed in 2 days, on 08/06/2018, with Dr. Smith. Two nights ago, she woke up due to joint pain and went to the restroom. She felt significantly short of breath when she returned to bed and was unable to fall asleep for some time. She continued to struggle with dyspnea with exertion and near-syncope with very minimal ambulation and therefore called her PCPs office and Dr. Franco office. She checked her pulse and found to be 32. She was instructed to come to the emergency department. She denies actual syncope, chest pain, palpitations, edema, melena, hematochezia , hematuria, fevers, chills, nausea, vomiting, or diarrhea. She is completely asymptomatic well sitting or laying in bed. Review of systems: As above. Review of systems otherwise negative/ unremarkable. Social history: No tobacco or drug abuse. Occasional alcohol. She lives at home with her . She has 3 children. She lives at [facility]. Her and daughter are present at the bedside. Family history: No known premature CAD. Her father at the age of 97. Her maternal grandmother at 102. Allergies Allergy/AdvReac Type Severity Reaction Status Date / Time bee venom protein (honey bee) Allergy Intermediate HIVES Verified 08/04/18 15:20 ampicillin Allergy Unknown FLU-LIKE Verified 08/04/18 15:20 SYMPTOMS Penicillins Allergy Unknown FAMILY HX Verified 08/04/18 15:20 - PT HAS NEVER TAKEN zolpidem AdvReac Intermediate "very Verified 08/04/18 15:20 sedated, lasted too long" Home Medications Home Medications Medication Instructions Recorded Confirmed Type acetaminophen [Tylenol Arthritis 650 mg PO QID 08/04/18 08/04/18 History Pain] aspirin 81 mg PO QAM 08/04/18 08/04/18 History cholecalciferol (vitamin D3) 1,000 unit PO HS 08/04/18 08/04/18 History [Vitamin D3] [id number]-zsp-yfb-tlsu-st 1 cap PO BID 08/04/18 08/04/18 History [Glucosamine Chondroitin PLUS] hydrochlorothiazide 25 mg PO QAM 08/04/18 08/04/18 History lisinopril 10 mg PO QAM 08/04/18 08/04/18 History lutein-zeaxanthin 1 tab PO HS 08/04/18 08/04/18 History metformin 500 mg PO BIDM 08/04/18 08/04/18 History omega 1-oyy-cip-fish oil [Fish Oil] 1 cap PO HS 08/04/18 08/04/18 History ranitidine HCl 150 mg PO DAILY PRN 08/04/18 08/04/18 History Patient History Medical History DM type 2 (diabetes mellitus, type 2) HTN (hypertension) Second degree heart block Sleep apnea Venous insufficiency Family History Other Multiple sclerosis Stroke Social History current occupational status: retired Feels Safe at Home: Yes Smoking Status: Never smoker Physical Exam 2 Vital Signs (Past 24 Hours): Last Vital Signs Temp 36.5 C 08/04/18 13:17 Pulse 32 L 08/04/18 15:06 Resp 20 08/04/18 15:06 BP 141/57 H 08/04/18 15:06 Pulse Ox 98 08/04/18 15:06 Physical Exam: Gen.: No acute distress. Alert and oriented. HEENT: Anicteric sclera. Neck: No JVD. No bruits. Normal carotid upstrokes bilaterally. Cardiac: PMI was nonpalpable . No ventricular heave. Regular in the 30s. Normal S1-S2. No murmurs, rubs, or gallops. Pulmonary: Clear to auscultation bilaterally without wheezes, rales, or rhonchi. Abdomen: Soft, nontender, nondistended, with normoactive bowel sounds. No bruits noted. Extremities: 2+ radial pulses bilaterally. 2+ posterior tibialis pulses bilaterally. Trace bilateral lower extremity edema. No cyanosis. Psychiatric: Affect appears appropriate. Results & Data Laboratory Results Laboratory Results - last 24 hr 08/04/18 08/04/18 08/04/18 13:15 13:15 13:15 WBC 9.31 RBC 4.38 Hgb 13.2 Hct 40.7 MCV 92.9 MCH 30.1 MCHC 32.4 RDW Std Deviation 46.6 H RDW Coeff of Uvaldo 13.7 Plt Count 249 MPV 11.6 H Immature Gran % (Auto) 0.2 Neut % (Auto) 65.3 Lymph % (Auto) 26.9 Hayes % (Auto) 5.8 Eos % (Auto) 1.3 Baso % (Auto) 0.5 Immature Gran # (Auto) 0.02 Neut # (Auto) 6.08 Lymph # (Auto) 2.50 Hayes # (Auto) 0.54 Eos # (Auto) 0.12 Baso # (Auto) 0.05 PT 10.2 INR 1.0 APTT 26.1 PTT Ratio 1.0 Sodium 137 Potassium 4.0 Chloride 104 Carbon Dioxide 24 Anion Gap 10.0 BUN 24 H Creatinine 1.09 Est Cr Clr Drug Dosing 54.3 Est GFR ( Amer) 57.1 Est GFR (Non-Af Amer) 49.3 BUN/Creatinine Ratio 21.9 H Glucose 116 H Calcium 9.1 Magnesium 2.3 Total Bilirubin 0.4 AST 21 ALT 26 Alkaline Phosphatase 82 Total Protein 7.7 Albumin 3.6 Globulin 4.1 H Albumin/Globulin Ratio 0.9 TSH 2.090 Diagnostic Findings ECG personally reviewed: ECG 08/04/2018 at 1:15 p.m.: Sinus rhythm with AV dissociation and ventricular skip rhythm in the 30s. RBBB pattern. Telemetry personally reviewed: Sinus rhythm with complete heart block. Chest x-ray 08/04/2018: No acute findings. Echo 07/30/2018: Images were personally reviewed. LV systolic function is normal. No wall motion abnormalities visualized. No aortic stenosis.
[2018-08-04] MEDS ORDERED: CARBOHYDRATES FOR HYPOGLYCEMIA PO PRN (15:47)
[2018-08-04] MEDS ORDERED: DEXTROSE 50% 50 ML SYRINGE IV PRN (15:47)
[2018-08-04] MEDS ORDERED: GLUCOSE 10 TABS/TUBE PO PRN (15:47)
[2018-08-04] MEDS ORDERED: GLUCOSE 40% GEL 15 GM TUBE PO PRN (15:47)
[2018-08-04] MEDS ORDERED: GLUCAGON FOR INJ 1 MG VIAL IM PRN (15:47)
--- NOTE | 2018-08-04 17:06 | Critical Care Consultation ---
Date of Consultation August 04, 2018 Assessment & Plan (1) Third degree heart block: Impression: 1. Complete heart block, hemodynamically stable. Appears to be idiopathic, thyroid function was normal, no exposures to ticks, does not take any beta- blockers. 2. Idiopathic cardiomyopathy. 3. History of hypertension. Plan: 1. Continue with oral intake today and keep the patient n.p.o. after midnight. 2. IV fluid after midnight. 3. Continue with her cardiac medications. 4. Cardiology consult appreciated. 5. Pacemaker placement in the morning. 6. Discussed with the patient and the family at the bedside in details. 7. Discussed with the staff at the bedside. Critical care time spent with the patient was 35 minutes. History of Present Illness Reason for Consultation: Complete heart block Requesting Physician: Dr. Rodriguez Attending Physician: Kleber Rider DO History of Present Illness Dear Dr. Rodriguez: Thank you for your kind referral Mrs. Cabral to critical care service. This is 78-year-old female with history of idiopathic cardiomyopathy, hypertension, presented to the hospital with history of 2 months of shortness of breath with dyspnea on exertion, has been evaluated as an outpatient with cardiology and underwent a stress test which revealed second-degree AV block. The patient was planned to have a pacemaker placement this week. For the past 24 hours, the patient started having increasing shortness of breath and dizziness, increased swelling in her lower extremities, denies any chest pain, she checked her own pulse and called her sound cutter found to have her heart rate around 32. She was advised to come into the emergency room. In the ED, the patient was in complete heart block. Her blood pressure was maintained at 155. The patient was admitted to the ICU for further monitoring in preparation for pacemaker placement in the morning. Patient denies any chest pain, no orthopnea, no dizziness or syncopal episode, denies any falls, no change in bowel movements or urine habits, no nausea or vomiting reported. No abdominal pain. The rest of her review of system was unremarkable. Patient is lifetime non-smoker. She worked as a teacher. She lives with her . No family history correlating to her current illness. Allergies Allergy/AdvReac Type Severity Reaction Status Date / Time bee venom protein (honey bee) Allergy Intermediate HIVES Verified 08/04/18 15:20 ampicillin Allergy Unknown FLU-LIKE Verified 08/04/18 15:20 SYMPTOMS Penicillins Allergy Unknown FAMILY HX Verified 08/04/18 15:20 - PT HAS NEVER TAKEN zolpidem AdvReac Intermediate "very Verified 08/04/18 15:20 sedated, lasted too long" Home Medications Home Medications Medication Instructions Recorded Confirmed Type acetaminophen [Tylenol Arthritis 650 mg PO QID 08/04/18 08/04/18 History Pain] aspirin 81 mg PO QAM 08/04/18 08/04/18 History cholecalciferol (vitamin D3) 1,000 unit PO HS 08/04/18 08/04/18 History [Vitamin D3] [id number]-megzz-[id number]-bon-uwp-jule-st 1 cap PO BID 08/04/18 08/04/18 History [Glucosamine Chondroitin PLUS] hydrochlorothiazide 25 mg PO QAM 08/04/18 08/04/18 History lisinopril 10 mg PO QAM 08/04/18 08/04/18 History lutein-zeaxanthin 1 tab PO HS 08/04/18 08/04/18 History metformin 500 mg PO BIDM 08/04/18 08/04/18 History omega 0-mgc-alr-fish oil [Fish Oil] 1 cap PO HS 08/04/18 08/04/18 History ranitidine HCl 150 mg PO DAILY PRN 08/04/18 08/04/18 History Patient History Medical History DM type 2 (diabetes mellitus, type 2) HTN (hypertension) Second degree heart block Sleep apnea Venous insufficiency Family History Other Multiple sclerosis Stroke Social History Current Living Situation: Personal Care Facility Current Living Situation Comment: lives at [facility] current occupational status: retired Other Information That Helps Us Care for You: No Feels Safe at Home: Yes Safety Concerns: Feels Safe At This Time Smoking Status: Never smoker Hx Alcohol Use: No Hx Substance Use: No Beliefs That Will Affect Care: Buddhism Preferred Language: Bahamian Communication Ability: Effective Review of Systems Review of system otherwise including 14 systems were unremarkable. Physical Exam 2 Vital Signs (Past 24 Hours): Last Vital Signs Temp 36.6 C 08/04/18 16:00 Pulse 30 L 08/04/18 16:00 Resp 18 08/04/18 16:00 BP 155/53 H 08/04/18 16:00 Pulse Ox 96 08/04/18 16:00 Physical Exam: No respiratory or agonal distress, vital signs are stable except for the heart rate of 32 and complete heart block, no fever, O2 saturation 98% on room air, no carotid bruit, no JVP, S1-S2 regular rate and rhythm, distant breath sounds bilaterally, bradycardic, abdomen is benign, 1+ edema in the periphery, neurologically she is intact, no visual disturbances. Minimal skin rash noted from taking the aspirin according to the patient appear to be petechial rash. Results & Data Laboratory Results Labs were reviewed personally which showed normal CBC and BMP, TSH of 2.0. Diagnostic Findings Chest x-ray showed cardiomegaly but clear lung field. Recent Holter monitor reported as 50% with 2-1 AV block.
[2018-08-04] MEDS: INSULIN ASPART 100 UNITS/ML 3 ML PEN SC SCH ×2 (17:34→21:02)
[2018-08-04] MEDS: ACETAMINOPHEN 500 MG TAB PO SCH ×2 (17:36→23:37)
[2018-08-05 04:46] LABS: Hematocrit (blood only) 38.3 % (37-47); Hemoglobin 12.5 g/dL (12.0-16.0); Mean Corpuscular Hgb Conc 32.6 g/dL (32-36); Mean Corpuscular Volume 92.3 fL (80-100); Mean Platelet Volume 11.1 fL (7.4-10.4); Platelet Count 230 K/uL (130-400); RDW Coefficient of Variation 13.7 % (11.5-14.5); RDW Standard Deviation 45.7 fL (36.4-46.3); Red Blood Count 4.15 M/uL (4.2-5.4); White Blood Count 8.18 K/uL (4.8-10.8)
[2018-08-05 05:09] LABS: BUN Creatinine Ratio 24.2 (10-20); Calcium 8.6 mg/dl (8.5-10.1); Creatinine Clr Calc Pharmacy 62.6 ml/min; Est GFR (African American) 68.3; Est GFR (Non-African American) 58.9; Potassium 4.2 mmol/L (3.5-5.1)
[2018-08-05 05:19] LABS: INR 1.1 (0.9-1.1); Prothrombin Time 10.7 Seconds (9.0-12.0)
[2018-08-05] MEDS: ACETAMINOPHEN 500 MG TAB PO SCH ×4 (06:32→23:22)
[2018-08-05] MEDS: INSULIN ASPART 100 UNITS/ML 3 ML PEN SC SCH ×4 (07:00→20:45)
[2018-08-05] MEDS ORDERED: MIDAZOLAM HCL 5 MG/ML 1 ML VIAL ONE (07:11)
[2018-08-05] MEDS ORDERED: CEFAZOLIN 250 MG/ML 1 GM VIAL ONE ×2 (07:11→07:57)
[2018-08-05] MEDS ORDERED: LIDOCAINE HCL 1% 20 ML VIAL ONE (07:11)
[2018-08-05] MEDS ORDERED: BUPIVACAINE 0.25% 30 ML VIAL ONE (07:11)
[2018-08-05] MEDS ORDERED: fentaNYL citrate 100 MCG/2 ML VIAL ONE (07:11)
[2018-08-05] MEDS ORDERED: BACITRACIN INJ 50,000 UNIT VIAL ONE (07:12)
--- NOTE | 2018-08-05 07:45 | Pre Anesthesia Assessment ---
Date of Service August 05, 2018 Pre Sedation Assessment Vital Signs Temp Pulse Pulse Resp BP BP Pulse Ox 08/05/18 07:00 36.8 C 31 L 19 122/62 95 08/05/18 06:01 32 L 17 134/53 L 93 08/05/18 06:00 28 L 11 L 90 08/05/18 05:01 46 L 13 137/55 L 93 08/05/18 05:00 22 94 08/05/18 04:01 37 L 15 122/49 L 91 08/05/18 04:00 36.6 C 30 L 15 91 08/05/18 03:01 31 L 14 128/50 L 94 08/05/18 03:00 40 L 17 92 08/05/18 02:01 41 L 15 114/47 L 95 08/05/18 02:00 30 L 16 92 08/05/18 01:02 31 L 16 124/36 L 92 08/05/18 01:00 32 L 23 93 08/05/18 00:01 36.7 C 32 L 13 118/46 L 93 08/05/18 00:00 40 L 17 92 08/04/18 23:52 33 L 16 127/41 L 92 08/04/18 23:00 66 15 97 08/04/18 22:00 47 L 14 124/49 L 95 08/04/18 21:00 37 L 17 127/51 L 93 08/04/18 20:30 21 94 08/04/18 20:01 73 19 136/54 L 94 08/04/18 20:00 36.5 C 32 L 19 95 08/04/18 19:30 67 18 96 08/04/18 19:21 40 L 19 147/53 H 97 08/04/18 19:00 74 21 95 08/04/18 18:00 39 L 14 144/67 H 95 08/04/18 17:00 48 L 22 138/60 94 08/04/18 16:05 26 H 155/53 H 94 08/04/18 16:00 36.6 C 30 L 18 155/53 H 96 08/04/18 15:06 32 L 32 L 14 141/57 H 141/57 H 96 08/04/18 14:02 16 146/72 H 94 08/04/18 13:32 41 L 16 144/59 H 96 08/04/18 13:31 33 L 15 144/59 H 96 08/04/18 13:17 36.5 C 43 L 15 161/61 H 97 Cardiovascular + bradycardic Respiratory + respiratory effort normal Pre-Sedation Airway Assessment Smoking Status: Never smoker Hx Sleep Apnea: No Hx Difficult Intubation: No Short, Thick Neck: No Thyromental Distance: > or= 3.5 Finger Breadths Oral Cavity: + WNL Mallampati Class: III ASA: ASA3 Procedure Planning Contraindications for Sedation: none Current Medications Reviewed: Yes Notes The planned sedation has been discussed with the patient. Informed Consent was obtained. I have identified the patient, determined the appropriateness of sedation and have assessed the patient immediately prior to the procedure. All medicine(s) and interventions are by my order.
--- NOTE | 2018-08-05 08:58 | Procedure Note ---
Procedure Note Date of Service August 05, 2018 Note Procedure performed: Implantation of dual-chamber permanent pacemaker Staff accounts payable specialist: Callum Smith MD Indication: The patient is a 78-year-old woman with a history of conduction disease having previously been evaluated for 2-1 AV block. She presented not in any [facility] emergency room the day prior to the procedure with dyspnea on exertion and complete heart block. She still be a good candidate for implantation of permanent pacemaker due to symptomatic nonreversible AV node dysfunction. Dual-chamber device was selected as the patient is currently in sinus rhythm and wished to maintain AV synchrony. Procedure in detail: The patient was informed of the risks benefits and alternatives to the intended procedure and she wished to proceed. She was taken to the electrophysiology suite in a fasting state. A preoperative antibiotic had been administered. The patient was monitored electrocardiographically throughout today's procedure and conscious sedation was administered per protocol. The left upper pectoral area is prepped and draped in usual sterile fashion. This area was anesthetized using subcutaneous administration of a xylocaine solution. An incision was made at this site and carried down to the prepectoralis fascia using sharp dissection. Electrocautery was also employed for dissection as well as for hemostasis. A device pocket was fashioned tissues above the pectoralis muscle. Subsequent to this maneuver the left axillary vein was accessed using modified Seldinger technique. Sheaths were placed over guidewires at this site and used to facilitate passage of the pacing leads to the respective chambers under fluoroscopic guidance. This included right atrial and right ventricular leads. Adequate sensing and threshold parameters were obtained prior to Active fixation of the leads to the endocardial surface. The proximal portion leads were then sutured the prepectoral fascia using nonabsorbable suture. The device pocket was irrigated with antibiotic solution. The leads were then attached to the device. The device and leads were then placed in the pocket and pocket was closed in 3 layers of absorbable suture. Steri-Strips and sterile dressing were applied. The device was tested noninvasively prior to conclusion the procedure. The patient tolerated procedure well there no immediate complications. Equipment used: New pulse generator: Audio Director Med[employer]ytree. Model number: [id number] serial number [id number] Right atrial lead: Audio Director [employer]ytree. Model number: 5076 serial number [id number] Right ventricular lead: Audio Director Medtronic. Model number: 5076 serial number [id number] Measured data: Right atrial lead: P waves measured 2 mV. Pacing threshold was 0.75 V at 0.4 ms with a pacing impedance of 475 ohms Right ventricular lead: No intrinsic R waves were measured. Pacing threshold was 0.5 V 0.4 ms with a pacing impedance of 684 ohms Impression: Successful implantation of dual-chamber permanent pacemaker
[2018-08-05] MEDS ORDERED: ACETAMINOPHEN 325 MG TAB PO PRN (08:59)
[2018-08-05] MEDS: OXYCODONE HCL IR 5 MG TAB (IMMEDIATE RELEASE) PO PRN ×2 (09:34→15:35)
--- NOTE | 2018-08-05 14:59 | Hospitalist Progress Note ---
Date of Service August 05, 2018 Assessment & Plan (1) Third degree heart block: permanent pacemaker implanted in the morning on 08/05 tolerated well d/w Dr. Smith, home tomorrow transfer to PCU (2) SOB (shortness of breath): likely due to bradycardia resolved today (3) HTN (hypertension): BP stable continue to hold lisinopril and HCTZ since systolic BP 130's resume on discharge (4) DM type 2 (diabetes mellitus, type 2): hold Metformin use Novolog PRN diabetic diet monitor for hypoglycemia, no issues Plan: home tomorrow AM as long as she remains stable Subjective pacer placed this morning, tolerated well talked with Dr. Smith, patient can go home tomorrow as long as she is stable patient seen later in the morning, feeling "woozy" said her head was off, no dizziness, just not feeling well otherwise she was doing fine, no chest pain, no dyspnea, no nausea reviewed labs, normal CBC and BMP HR in 60-70's now on monitor Review of Systems All systems reviewed & are unremarkable except as noted in HPI & below Physical Exam 2 Vital Signs (Past 24 Hours): Last Vital Signs Temp 36.3 C L 08/05/18 12:29 Pulse 69 08/05/18 12:29 Resp 18 08/05/18 12:29 BP 133/81 08/05/18 12:29 Pulse Ox 94 08/05/18 12:29 Constitutional: WD/WN, vitals as above Eyes: PERRL, conjunctivae normal, anicteric sclerae ENMT: external ear and nose normal, oropharynx normal Neck: trachea midline, no thyromegaly Respiratory: normal respiratory effort, lungs clear to auscultation Cardiovascular: Rate/Rhythm: regular rate (paced) Heart Sounds: normal S1 and normal S2; no murmur Vessels: normal peripheral pulses; no JVD and no carotid bruit Chest (Breasts): Chest: normal inspection of chest Gastrointestinal (Abdomen): normal bowel sounds, soft, nontender, no hepatosplenomegaly Musculoskeletal: no cyanosis or clubbing, extremities motor strength 5/5 Skin: no rashes, warm and dry Neurologic: patellar DTR's 2+ bilat, sensation intact and PERRL, EOMI, accommodation nl, no face palsy, no dysarthria Psychiatric: A+Ox3, euthymic affect Lymphatic: no cervical or axillary lymphadenopathy Results & Data Laboratory Results Laboratory Results - last 24 hr 08/04/18 08/04/18 08/04/18 15:51 16:00 16:45 WBC RBC Hgb Hct MCV MCH MCHC RDW Std Deviation RDW Coeff of Uvaldo Plt Count MPV PT INR Sodium Potassium Chloride Carbon Dioxide Anion Gap BUN Creatinine Est Cr Clr Drug Dosing Est GFR ( Amer) Est GFR (Non-Af Amer) BUN/Creatinine Ratio Glucose POC Glucose 92 Calcium Troponin I < 0.015 Nasal Screen MRSA (PCR) Negative 08/04/18 08/05/18 08/05/18 20:54 04:34 04:34 WBC 8.18 RBC 4.15 L Hgb 12.5 Hct 38.3 MCV 92.3 MCH 30.1 MCHC 32.6 RDW Std Deviation 45.7 RDW Coeff of Uvaldo 13.7 Plt Count 230 MPV 11.1 H PT 10.7 INR 1.1 Sodium Potassium Chloride Carbon Dioxide Anion Gap BUN Creatinine Est Cr Clr Drug Dosing Est GFR ( Amer) Est GFR (Non-Af Amer) BUN/Creatinine Ratio Glucose POC Glucose 99 Calcium Troponin I Nasal Screen MRSA (PCR) 08/05/18 08/05/18 08/05/18 04:34 09:37 11:18 WBC RBC Hgb Hct MCV MCH MCHC RDW Std Deviation RDW Coeff of Uvaldo Plt Count MPV PT INR Sodium 138 Potassium 4.2 Chloride 109 H Carbon Dioxide 26 Anion Gap 3.0 BUN 23 H Creatinine 0.94 Est Cr Clr Drug Dosing 62.6 Est GFR ( Amer) 68.3 Est GFR (Non-Af Amer) 58.9 BUN/Creatinine Ratio 24.2 H Glucose 101 H POC Glucose 107 H 116 H Calcium 8.6 Troponin I Nasal Screen MRSA (PCR) Medications Administered Current Inpatient Medications Acetaminophen (Tylenol) 500 mg PO Q6 HOLA Stop: 09/03/18 17:59 Last Admin: 08/05/18 13:21 Dose: Not Given Dextrose (Dextrose 50%) 25 - 50 ml IV UD PRN; Protocol PRN Reason: Hypoglycemia Protocol Stop: 09/03/18 15:46 Glucagon (Glucagen) 1 mg IM UD PRN; Protocol PRN Reason: Hypoglycemia Protocol Stop: 09/03/18 15:46 Glucose (Glucose 40%) 15 - 30 gm PO UD PRN; Protocol PRN Reason: Hypoglycemia Protocol Stop: 09/03/18 15:46 Glucose (Dex4 Glucose) 4 - 8 tabs PO UD PRN; Protocol PRN Reason: Hypoglycemia Protocol Stop: 09/03/18 15:46 Cefazolin Sodium (Ancef 2000mg) 2,000 mg in 15 mls @ 2.5 mls/min IV Q8H HOLA; Protocol Stop: 08/06/18 15:59 Insulin Aspart (Novolog Flexpen) 0 units SC ACHS HOLA Stop: 09/03/18 16:29 Last Admin: 08/05/18 13:21 Dose: Not Given Miscellaneous (Carbohydrates For Hypoglycemia) 15 - 30 gm PO UD PRN PRN Reason: Hypoglycemia Treatment Stop: 09/03/18 15:46 Oxycodone HCl (Roxicodone Immediate Rel) 5 mg PO Q4 PRN PRN Reason: Pain Stop: 08/19/18 09:00 Last Admin: 08/05/18 09:34 Dose: 5 mg
[2018-08-05] MEDS: CEFAZOLIN 2000MG 2,000 MG/15 ML SYR IV SCH ×2 (15:50→23:22)
[2018-08-05] MEDS: FLUTICASONE PROPIONATE NA SPR 16 GM BTL SCH (20:46)
[2018-08-06] MEDS: ACETAMINOPHEN 500 MG TAB PO SCH ×2 (05:44→11:50)
[2018-08-06 07:02] LABS: Basophils # (auto) 0.05 K/uL (0-0.2); Basophils % (auto) 0.6 %; Eosinophils # (auto) 0.17 K/uL (0-0.5); Hematocrit (blood only) 38.6 % (37-47); Hemoglobin 13.4 g/dL (12.0-16.0); Immature Granulocytes # (auto) 0.02 K/uL (0.00-0.02); Immature Granulocytes % (auto) 0.2 %; Lymphocytes # (auto) 2.19 K/uL (1.2-3.4); Lymphocytes % (auto) 25.9 %; Mean Corpuscular Hgb Conc 34.7 g/dL (32-36); Mean Corpuscular Volume 91.3 fL (80-100); Mean Platelet Volume 10.6 fL (7.4-10.4); Monocytes # (auto) 0.67 K/uL (0.11-0.59); Monocytes % (auto) 7.9 %; Neutrophils # (auto) 5.36 K/uL (1.4-6.5); Neutrophils % (auto) 63.4 %; Platelet Count 206 K/uL (130-400); RDW Coefficient of Variation 13.6 % (11.5-14.5); RDW Standard Deviation 44.9 fL (36.4-46.3); Red Blood Count 4.23 M/uL (4.2-5.4); White Blood Count 8.46 K/uL (4.8-10.8)
--- NOTE | 2018-08-06 07:18 | XRay Report ---
XR chest 2V routine CLINICAL HISTORY: Pacemaker placement COMPARISON STUDY: 08/04/2018 FINDINGS: There is a left subclavian dual-chamber central venous pacemaker. The heart remains enlarge d. There is no failure. There is no focal pulmonary consolidation. There are no pleural effusions. Th ere is no pneumothorax. Pacemaker lead position appears unremarkable. There are postsurgical changes of a left shoulder arthroplasty.[ IMPRESSION: No evidence of pneumothorax status post placement of a left subclavian dual-chamber centr al venous pacemaker. Electronically signed by: Fuad Davila M.D. 08/06/2018 7:16 AM
[2018-08-06 07:40] LABS: BUN Creatinine Ratio 19.9 (10-20); Calcium 8.8 mg/dl (8.5-10.1); Creatinine Clr Calc Pharmacy 69.2 ml/min; Est GFR (African American) 78.2; Est GFR (Non-African American) 67.5; Potassium 4.1 mmol/L (3.5-5.1)
[2018-08-06] MEDS: INSULIN ASPART 100 UNITS/ML 3 ML PEN SC SCH ×2 (07:51→11:04)
[2018-08-06] MEDS: CEFAZOLIN 2000MG 2,000 MG/15 ML SYR IV SCH (07:55)
--- NOTE | 2018-08-06 08:29 | Cardiology Progress Note ---
Date of Service August 06, 2018 Assessment & Plan (1) Third degree heart block: Patient underwent successful implantation of dual-chamber permanent pacemaker yesterday. She has normal device function. She should refrain from lifting the left arm above the shoulder behind the neck for 6 weeks. She should keep the wound dry with a Steri-Strip intact for 1 week or until previously scheduled follow-up next week in our cardiology clinic. The patient is stable for discharge from my standpoint. Present on Admission?: Yes Subjective This morning the patient claims to be feeling well. She denies pain at the implant site. She primarily has some discomfort in her back that she attributes to being stuck in bed. Physical Exam 2 Vital Signs (Past 24 Hours): Last Vital Signs Temp 36.6 C 08/06/18 07:01 Pulse 60 08/06/18 07:01 Resp 17 08/06/18 07:01 BP 131/78 08/06/18 07:01 Pulse Ox 93 08/06/18 03:22 Physical Exam: There is some mild ecchymosis at the implant site but no significant erythema, swelling or drainage. No hematoma. Results & Data Laboratory Results Abnormal Lab Results 08/05/18 08/05/18 08/05/18 09:37 11:18 16:14 WBC RBC Hgb Hct MCV MCH MCHC RDW Std Deviation RDW Coeff of Uvaldo Plt Count MPV Immature Gran % (Auto) Neut % (Auto) Lymph % (Auto) [place] % (Auto) Eos % (Auto) Baso % (Auto) Immature Gran # (Auto) Neut # (Auto) Lymph # (Auto) [place] # (Auto) Eos # (Auto) Baso # (Auto) Sodium Potassium Chloride Carbon Dioxide Anion Gap BUN Creatinine Est Cr Clr Drug Dosing Est GFR ( Amer) Est GFR (Non-Af Amer) BUN/Creatinine Ratio Glucose POC Glucose 107 H 116 H 110 H Calcium 08/05/18 08/06/18 08/06/18 20:25 06:49 06:49 WBC 8.46 RBC 4.23 Hgb 13.4 Hct 38.6 MCV 91.3 MCH 31.7 MCHC 34.7 RDW Std Deviation 44.9 RDW Coeff of Uvaldo 13.6 Plt Count 206 MPV 10.6 H Immature Gran % (Auto) 0.2 Neut % (Auto) 63.4 Lymph % (Auto) 25.9 [place] % (Auto) 7.9 Eos % (Auto) 2.0 Baso % (Auto) 0.6 Immature Gran # (Auto) 0.02 Neut # (Auto) 5.36 Lymph # (Auto) 2.19 [place] # (Auto) 0.67 H Eos # (Auto) 0.17 Baso # (Auto) 0.05 Sodium 134 L Potassium 4.1 Chloride 105 Carbon Dioxide 24 Anion Gap 5.0 BUN 17 Creatinine 0.84 Est Cr Clr Drug Dosing 69.2 Est GFR ( Amer) 78.2 Est GFR (Non-Af Amer) 67.5 BUN/Creatinine Ratio 19.9 Glucose 111 H POC Glucose 105 H Calcium 8.8 08/06/18 07:45 WBC RBC Hgb Hct MCV MCH MCHC RDW Std Deviation RDW Coeff of Uvaldo Plt Count MPV Immature Gran % (Auto) Neut % (Auto) Lymph % (Auto) [place] % (Auto) Eos % (Auto) Baso % (Auto) Immature Gran # (Auto) Neut # (Auto) Lymph # (Auto) [place] # (Auto) Eos # (Auto) Baso # (Auto) Sodium Potassium Chloride Carbon Dioxide Anion Gap BUN Creatinine Est Cr Clr Drug Dosing Est GFR ( Amer) Est GFR (Non-Af Amer) BUN/Creatinine Ratio Glucose POC Glucose 112 H Calcium Diagnostic Findings Chest x-ray demonstrated good lead placement without evidence of pneumothorax Device interrogation revealed normal function of both the atrial and ventricular leads
[2018-08-06] MEDS: FLUTICASONE PROPIONATE NA SPR 16 GM BTL SCH (09:34)
--- NOTE | 2018-08-06 10:13 | Discharge Summary ---
Date of Service August 06, 2018 Admission HPI Per Admitting Provider 78 yo female with limited medical history of HTN and DM type II, was recently diagnosed with 2nd degree AV block type II with plans for a pacemaker on with Dr. Smith. Over the past two days she has noticed more dyspnea, no exercise tolerance, gets short of breath just walking around house. She had a single episode of chest pain when walking but resolved very quickly. She took her pulse this morning out of curiosity and it was in the 30's. Her friend advised her to come to the ED immediately. She is her with her . Her pulse in the ED has been 30-40's. EKG now shows complete AV block with dissociation. Her blood pressure has been normal, 140's systolic. She feels fine laying down in bed, she says she is hungry. Medical history significant for hypertension, DM type II. Family history significant for stroke in her mother, father lived to be 99, grandmother lived to 103. one brother from multiple sclerosis and another brother has COPD no history of smoking or heavy alcohol use ED physician talked with Dr. Smith over the phone, plan for pacer tomorrow Admission Exam Per Admitting Provider Constitutional: WD/WN, vitals as above Eyes: PERRL, conjunctivae normal, anicteric sclerae ENMT: external ear and nose normal, oropharynx normal Neck: trachea midline, no thyromegaly Respiratory: normal respiratory effort, lungs clear to auscultation Cardiovascular: Rate/Rhythm: + bradycardic; + abnormal rhythm (irregular irregular) Heart Sounds: normal S1 and normal S2; no murmur Vessels: normal peripheral pulses; no JVD and no carotid bruit Chest (Breasts): Chest: normal inspection of chest Gastrointestinal (Abdomen): normal bowel sounds, soft, nontender, no hepatosplenomegaly Musculoskeletal: no cyanosis or clubbing, extremities motor strength 5/5 Skin: no rashes, warm and dry Neurologic: patellar DTR's 2+ bilat, sensation intact and PERRL, EOMI, accommodation nl, no face palsy, no dysarthria Psychiatric: A+Ox3, euthymic affect Lymphatic: no cervical or axillary lymphadenopathy Principal Diagnosis 3rd degree AV block Discharge Exam Constitutional WD/WN, vitals as above Eyes PERRL, conjunctivae normal, anicteric sclerae ENMT external ear and nose normal, oropharynx normal Neck trachea midline, no thyromegaly Respiratory normal respiratory effort, lungs clear to auscultation Cardiovascular Rate/Rhythm: regular rate (paced) and + bradycardic; + abnormal rhythm ( irregular irregular) Heart Sounds: normal S1 and normal S2; no murmur Vessels: normal peripheral pulses; no JVD and no carotid bruit Chest (Breasts) Chest: normal inspection of chest Gastrointestinal (Abdomen) normal bowel sounds, soft, nontender, no hepatosplenomegaly Musculoskeletal no cyanosis or clubbing, extremities motor strength 5/5 Skin no rashes, warm and dry Neurologic patellar DTR's 2+ bilat, sensation intact and PERRL, EOMI, accommodation nl, no face palsy, no dysarthria Psychiatric A+Ox3, euthymic affect Lymphatic no cervical or axillary lymphadenopathy Discharge Data Allergies Allergy/AdvReac Type Severity Reaction Status Date / Time bee venom protein (honey bee) Allergy Intermediate HIVES Verified 08/04/18 15:20 ampicillin Allergy Unknown FLU-LIKE Verified 08/04/18 15:20 SYMPTOMS Penicillins Allergy Unknown FAMILY HX Verified 08/04/18 15:20 - PT HAS NEVER TAKEN zolpidem AdvReac Intermediate "very Verified 08/04/18 15:20 sedated, lasted too long" Consultations 08/04/18 14:15 ED Decision to Admit Stat 08/04/18 15:30 Consult Cardiology Stat Consult Case Management - Discharge Planning Routine Consult Inlayer Routine Procedures Performed Operation Date: 08/05/18 08:00 Actual Procedures p Pacer with A/V Leads (Dual) - Talat Smith MD Ordered Studies 08/05/18 07:15 EP Lab Images for PACS ONCE Hospital Course (1) Third degree heart block: permanent pacemaker implanted in the morning on 08/05 tolerated well okay for d/c per Dr. Smith discussed limitations in moving left arm follow up with Dr. Smith on 08/12 (2) SOB (shortness of breath): likely due to bradycardia resolved after pacer (3) HTN (hypertension): BP stable continue lisinopril and HCTZ on discharge (4) DM type 2 (diabetes mellitus, type 2): resume Metformin on discharge Total Time Total Time Spent Total Time Spent (In Minutes): 32 minutes Total Time Includes: Examination of the Patient, Discharge Planning, Medication Reconciliation and Communication With Other Providers Discharge Plan Discharge Items Patient Disposition: Home - Self-Care Reason For Visit: 3RD DEGREE AV BLOCK, BRADYCARDIA Discharge Diagnosis: 3rd degree AV block, s/p pacemaker Discharge Goals: Improve function and Increase independence Activity: Per 'Additional Instructions' section Lifting: None Bathing: Keep incision dry Exercise/Sports: Gradually increase as tolerated Driving/Machine Use: No limitations Non-emergency contact: Primary Care Provider and [facility] Call non-emergency contact if: you have any medication questions, your symptoms worsen and you have a fever Follow-up/Referrals: Talat Smith MD [[facility]] - 08/12/18 10:30 am (Please, follow up at [facility] Cardiology Office for a check of your pacemaker insertion site on FridayAugust 12 at 10:30 am. *This office is located in [address] of [facility] [place] [facility] building next to this [facility]. If you need to change this appointment, call the office at [phone].) Diet: Carb Consistent or DM2 Addtl Provider Instructions: Medications: - OXYCODONE: take as needed for pain s/p pacemaker for 3rd degree AV block and bradycardia left arm: do not lift above shoulder, do not reach behind you for 6 weeks keep incision dry, keep steri strips on until you see Dr. Smith on 08/12 use Oxycodone for any pain Prescriptions: New oxycodone 5 mg Tablet 5 mg PO Q4 PRN (Reason: pain) 7 Days Qty: 20 RF: 0 Continue metformin 500 mg tablet 500 mg PO BIDM RF: 0 aspirin 81 mg Tablet,Delayed Release (Dr/Ec) 81 mg PO QAM RF: 0 acetaminophen [Tylenol Arthritis Pain] 650 mg Tablet Extended Release 650 mg PO QID RF: 0 ranitidine HCl 150 mg tablet 150 mg PO DAILY PRN (Reason: Acid Reflux) RF: 0 lisinopril 10 mg tablet 10 mg PO QAM RF: 0 hydrochlorothiazide 25 mg tablet 25 mg PO QAM RF: 0 cholecalciferol (vitamin D3) [Vitamin D3] 1,000 unit Capsule 1,000 unit PO HS RF: 0 [id number]-dis-sju-hbme-st [Glucosamine Chondroitin PLUS] [phone] mg Capsule 1 cap PO BID RF: 0 lutein-zeaxanthin 20 mg- 1,000 mcg Capsule 1 tab PO HS RF: 0 omega 7-rjm-ssg-fish oil [Fish Oil] 1,000 mg (120 mg-180 mg) Capsule 1 cap PO HS RF: 0 Stand-Alone Forms: [facility] Discharge Orders: Discharge Order (Routine); Ordered 08/06/18 Ordered By: Kleber Rider Admission Data Admit Date/Time: 08/04/18 14:17 Attending Provider: Kleber Rider Admit Provider: Kleber Rider Primary Care Provider: Omar Rosas Other Providers: David Colvin Christophe W. ; Sofía Roy Service: Telemetry Other Interventions: Discharge Summary Assessment (RN) Last Done: 08/06/18 09:54
== END 2018-08-06 11:58 | disposition home or self-care (01) | DRG 243 ==
LOC: ED 13:10 → 1E 14:17 → 2S 08-05 09:12

== ENCOUNTER 2020-01-19 04:56 | Inpatient (IN) ==
--- NOTE | 2020-01-06 22:01 | PAT Medication Instructions ---
Medication Instructions Date of Service January 06, 2020 Home Medications Medication Instructions Recorded hydrochlorothiazide 25 mg tablet 25 mg PO QAM #90 tab 04/23/19 Glucosamine Chondroitin PLUS 1 cap PO BID acetaminophen [Tylenol Arthritis Pain] 650 mg PO 5XD cholecalciferol (vitamin D3) [Vitamin D3] 1,000 unit PO HS metformin 500 mg PO BIDM omega 9-amf-epx-fish oil [Fish Oil] 1 cap PO HS vitamin A-vitamin C-vit E-min 1 tab PO QAM candesartan 4 mg tablet 4 mg PO QAM hydrochlorothiazide 25 mg tablet 25 mg PO QAM amlodipine 2.5 mg PO QAM aspirin [Aspir-81] 81 mg PO QAM atorvastatin 40 mg PO QAM omeprazole 20 mg PO QAM vitamin B complex-folic acid [B Complex 100] 1 tab PO PM STOP taking 2 weeks before surgery Glucosamine Chondroitin PLUS 1 cap PO BID omega 5-gld-qtj-fish oil [Fish Oil] 1 cap PO HS vitamin A-vitamin C-vit E-min 1 tab PO QAM DO NOT take the morning of surgery metformin 500 mg PO BIDM candesartan 4 mg tablet 4 mg PO QAM hydrochlorothiazide 25 mg tablet 25 mg PO QAM Take morning of surgery With a small sip of water, OTHERWISE NOTHING TO EAT OR DRINK AFTER MIDNIGHT: acetaminophen [Tylenol Arthritis Pain] 650 mg PO 5XD (if needed, may be taken up to four hours before surgery) amlodipine 2.5 mg PO QAM aspirin [Aspir-81] 81 mg PO QAM atorvastatin 40 mg PO QAM omeprazole 20 mg PO QAM Take evening before surgery acetaminophen [Tylenol Arthritis Pain] 650 mg PO 5XD (if needed) cholecalciferol (vitamin D3) [Vitamin D3] 1,000 unit PO HS metformin 500 mg PO BIDM vitamin B complex-folic acid [B Complex 100] 1 tab PO PM Other Notes If you have any questions please call us at [phone] or [phone] or [phone] or [phone]
--- NOTE | 2020-01-07 13:22 | Anesthesiology Consultation ---
Date of Service January 07, 2020 Assessment & Plan (1) Encounter for pre-operative examination: COVID Status: As of 01/06 assessment, patient denies travel to endemic area, known exposure/sick contacts, or symptoms of COVID19. Patient instructed to follow strict social distancing guidelines, wear a mask in public and avoid travel for 14 days prior to surgery. Preoperative COVID19 testing to be completed prior to surgery. Patient made aware to self-isolate as much as possible between COVID testing and surgery. Seen by cardiology 09/14/19. Noted increase in fatigue; cardio felt 2/2 poor sleep hygiene. Patient will be seeing cardio on 01/10 for f/u, and PCP for clearance prior to surgery. Chart Review Chart Review: Acceptable Risk for Surgery (pending surgeon-ordered PCP clearance and cardio office visit 01/10.) and Patient seen in Pre Admission Testing Teaching & Discussion Instructed NPO after midnight before surgery, except medications with 15 cc of water. Medication instructions provided according to the PAT guidelines. History Surgery Operation Date: 01/19/20 07:00 Proposed Procedures p Right Total Knee Arthroplasty - Bryce Guaman MD Height/Weight Height: 5 ft 6 in Weight: 105.2 kg Allergies Allergy/AdvReac Type Severity Reaction Status Date / Time bee venom protein (honey bee) Allergy MO HIVES Verified 01/05/20 13:04 ampicillin Allergy U FLU-LIKE Verified 01/05/20 13:04 SYMPTOMS Penicillins Allergy U FAMILY HX Verified 01/05/20 13:04 - PT HAS NEVER TAKEN prednisone Allergy EXTREME Verified 01/05/20 13:04 WEAKNESS zolpidem AdvReac MO Very Verified 01/05/20 13:04 Sedated. Lasted too long. Medications Home Medications Medication Instructions Recorded Confirmed Last Taken Glucosamine Chondroitin PLUS 1 cap PO BID 08/04/18 01/05/20 08/04/18 acetaminophen [Tylenol Arthritis 650 mg PO 5XD 08/04/18 01/05/20 08/04/18 12:00 Pain] cholecalciferol (vitamin D3) 1,000 unit PO HS 08/04/18 01/05/20 08/03/18 [Vitamin D3] metformin 500 mg PO BIDM 08/04/18 01/05/20 08/04/18 omega 3-cqe-jxg-fish oil [Fish Oil] 1 cap PO HS 08/04/18 01/05/2008/03/19 vitamin A-vitamin C-vit E-min 1 tab PO QAM 02/22/19 01/05/20 Unknown candesartan 4 mg tablet 4 mg PO QAM 03/08/19 01/05/20 Unknown hydrochlorothiazide 25 mg tablet 25 mg PO QAM #90 tab 04/23/19 01/05/20 Unknown amlodipine 2.5 mg PO QAM 01/05/20 01/05/20 Unknown aspirin [Aspir-81] 81 mg PO QAM 01/05/20 01/05/20 Unknown atorvastatin 40 mg PO QAM 01/05/20 01/05/20 Unknown omeprazole 20 mg PO QAM 01/05/20 01/05/20 Unknown vitamin B complex-folic acid [B 1 tab PO PM 01/05/20 01/05/20 Unknown Complex 100] Past Medical History Medical History (Updated 01/07/20 @ 16:38 by Lars Ramirez) Asthma NO LONGER USES INHALER. OCC SOB Chronic back pain Degenerative disc disease DM type 2 (diabetes mellitus, type 2) "PRE DIABETES PER PATIENT" GERD (gastroesophageal reflux disease) HTN (hypertension) PT STATES SHE DOES NOT HAVE Migraine HX Obesity Osteoarthritis Pacemaker MEDTRONIC> DUE TO 3RD DEGREE HEART BLOCK. FOLLOWS WITH JOSE AND ABEBE ELIZALDE> GETTING CHECKED ON 01/11/20 Scoliosis Sleep apnea NO CPAP> VERY MILD Third degree heart block (Inactive) s/p PPM Venous insufficiency Exercise / Class Metabolic Activity III < 4 Walking/Shop/Light housework (Denies CP or SOB with ambulation on one level, using cane, SOB much improved since pacemaker) Past Family History Family History Grandmother (Maternal) Cardiac disorder Grandmother (Paternal) Diabetes Hypertension Father Hypertension age 97 from pneumonia Mother Stroke, Onset Age: 80 age 80 from CVA Brother Multiple sclerosis Past Surgical History Surgical History H/O section H/O shoulder surgery left History of colonoscopy History of dilatation and curettage History of excision of mass soft tissue tumor of back subcutaneous History of tooth extraction History of total hip replacement right and left 2012 Hx of bilateral cataract extraction Past Anesthesia History No Hx of Anesthesia Complications and No Family Hx of Anesthesia Complications History of PONV No Hx of PONV and No Hx of Motion Sickness Social History Smoking Status: Never smoker Do You Dip or Chew Tobacco: No Hx Alcohol Use: Yes Alcohol type: wine alcohol intake frequency: a few times a month Hx Substance Use: No substance use type: does not use Review of Systems Pt denies any recent chest pain, shortness of breath, palpitations, cough, fever or URI. Physical Exam Vital Signs BP: 109/70 P: 75bpm SPO2: 98% RA T: R: 16 Constitutional + obese ENMT Mouth: + dentures (upper partial); no chipped teeth and no loose teeth Thyromental Distance: < 3.5 Finger Breadths (3) Mallampati Class: II Neck normal visual inspection; neck extension not limited Respiratory normal respiratory effort Auscultation: lungs clear to auscultation bilaterally Cardiovascular Rate/Rhythm: regular rate and regular rhythm Heart Sounds: no murmur Extremities: no edema Musculoskeletal Spine: + kyphosis No gross lumbar spinal deformity/scoliosis noted. Testing Laboratory Results 01/07/20 13:45 01/07/20 13:45 PT 10.7 Seconds (9.0-12.0) 01/07/20 13:45 INR 1.0 (0.9-1.1) 01/07/20 13:45 APTT 30.0 Seconds (21.0-31.0) 01/07/20 13:45 Urine Color Yellow 01/07/20 13:45 Urine Appearance Clear (Clear) 01/07/20 13:45 Urine pH 6.0 (4.5-7.5) 01/07/20 13:45 Ur Specific [place] 1.015 (1.000-1.030) 01/07/20 13:45 Urine Protein Negative (Negative) 01/07/20 13:45 Urine Glucose (UA) Negative (Negative) 01/07/20 13:45 Urine Ketones Negative (Negative) 01/07/20 13:45 Urine Nitrite Negative (Negative) 01/07/20 13:45 Ur Leukocyte Esterase 2+ (Negative) H 01/07/20 13:45 Urine WBC (Auto) 10-30 /hpf (0-5) H 01/07/20 13:45 Urine RBC (Auto) 0-4 /hpf (0-4) 01/07/20 13:45 U Hyaline Cast (Auto) 1-5 /lpf (0-5) 01/07/20 13:45 U Epithel Cells (Auto) >30 /lpf (0-5) H 01/07/20 13:45 Urine Bacteria (Auto) Negative (Negative) 01/07/20 13:45 Electrocardiogram Date: 01/07/20 Findings: + NSR @ (64bpm) LAD. RBBB. Compared to EKG from 08/11/18, SR has replaced electronic ventricular pacemaker. Chest X-Ray Date: 01/07/20 Mild stable cardiomegaly. Mild emphysematous change. Stress Test Date: 02/05/19 SUMMARY: 1. Small partially reversible mid inferolateral, apical lateral perfusion defect. Suspect potentially secondary to artifact with imaging with arms at sides/breast attenuation. Cannot rule out a small amount of single-vessel circumflex distribution ischemia. 2. Normal LV size and function. LVEF 82 % with no regional wall motion abnormalities. 3. Non-diagnostic stress ECG due to inability to reach target HR with Lexiscan. Other Testing Pacemaker Check 10/18/19 Model: Medtronic Implanted: 08/05/18 Mode: AAI/DDD Pacin.9% AP Conclusions: normal pacing. No significant arrhythmia.
--- NOTE | 2020-01-07 14:21 | XRay Report ---
XR chest Pre-admission PA/Lat CLINICAL HISTORY: pat . COMPARISON STUDY: 08/11/2018 FINDINGS: Mild stable cardiomegaly. Stable emphysematous change. No acute infiltrate. IMPRESSION: Chronic and postoperative change. Mild emphysematous change. ACT 112: Negative or not required by law. The above report was generated using voice recognition software. It may contain grammatical, syntax or spelling errors. Electronically signed by: Al Mercado M.D. 01/07/2020 2:19 PM
--- NOTE | 2020-01-07 15:57 | Electrocardiogram Report ---
Test Reason : Blood Pressure : / mmHG Vent. Rate : 064 BPM Atrial Rate : 064 BPM P-R Int : 158 ms QRS Dur : 150 ms QT Int : 464 ms P-R-T Axes : 063 -39 036 degrees QTc Int : 478 ms Normal sinus rhythm Left axis deviation Right bundle branch block Abnormal ECG When compared with ECG of 11-AUG-2018 12:07, Sinus rhythm has replaced Electronic ventricular pacemaker Confirmed by Rolan Huitron ([id number]) on 01/07/2020 3:57:12 PM Referred By: Bryce Guaman Confirmed By:Rolan Huitron
[2020-01-07 16:14] LABS: Basophils # (auto) 0.04 K/uL (0-0.2); Basophils % (auto) 0.6 %; Eosinophils # (auto) 0.09 K/uL (0-0.5); Eosinophils % (auto) 1.3 %; Hematocrit (blood only) 40.6 % (37-47); Hemoglobin 13.1 g/dL (12.0-16.0); Immature Granulocytes # (auto) 0.01 K/uL (0.00-0.02); Immature Granulocytes % (auto) 0.1 %; Lymphocytes # (auto) 1.77 K/uL (1.2-3.4); Lymphocytes % (auto) 26.1 %; Mean Corpuscular Hgb Conc 32.3 g/dL (32-36); Mean Corpuscular Volume 93.1 fL (80-100); Mean Platelet Volume 10.9 fL (7.4-10.4); Monocytes # (auto) 0.63 K/uL (0.11-0.59); Monocytes % (auto) 9.3 %; Neutrophils # (auto) 4.25 K/uL (1.4-6.5); Neutrophils % (auto) 62.6 %; Platelet Count 258 K/uL (130-400); RDW Coefficient of Variation 13.7 % (11.5-14.5); RDW Standard Deviation 46.6 fL (36.4-46.3); Red Blood Count 4.36 M/uL (4.2-5.4); White Blood Count 6.79 K/uL (4.8-10.8)
[2020-01-07 16:23] LABS: Albumin Level 3.6 gm/dl (3.4-5.0); BUN Creatinine Ratio 18.4 (10-20); Calcium 9.2 mg/dl (8.5-10.1); Est GFR (African American) 89.1; Est GFR (Non-African American) 76.9; Potassium 3.5 mmol/L (3.5-5.1)
[2020-01-07 16:27] LABS: Partial Thromboplastin Ratio 1.1; Prothrombin Time 10.7 Seconds (9.0-12.0)
[2020-01-07 16:29] LABS: Appearance Urine Clear (Clear); Bacteria Urine Automated Negative (Negative); Bilirubin Urine Negative (Negative); Blood Urine Negative (Negative); Color Urine Yellow; Epithelial Cell Urine Auto >30 /lpf (0-5); Glucose Urine UA Negative (Negative); Ketones Urine Negative (Negative); Leukocyte Esterase Urine 2+ (Negative); Nitrite Urine Negative (Negative); Protein Urine Negative (Negative); RBC Urine Automated 0-4 /hpf (0-4); Specific Gravity Urine 1.015 (1.000-1.030); Urobilinogen Urine Negative (Negative)
--- NOTE | 2020-01-18 18:42 | History and Physical Report ---
DATE OF ADMISSION: 01/19/2020 CHIEF COMPLAINT: Chronic right knee pain and instability. HISTORY OF PRESENT ILLNESS: This is a 79-year-old female patient of Dr. Guaman'yan complaining of chronic right knee pain, longstanding, now progressively getting worse. The patient has failed conservative treatment including ckaq-wac-cvrhwov medications, physical therapy, the use of a cane and a home exercise program. The patient has increased pain with weightbearing activities and her pain does interfere with her activities of daily living. The patient has been diagnosed with end-stage osteoarthritis per clinical and radiographic exam, and wishes to proceed with a right total knee arthroplasty. PAST MEDICAL HISTORY: TMJ, spine problems, sciatica, osteoarthritis. FAMILY HISTORY: Noncontributory. REVIEW OF SYSTEMS: Chronic right knee pain and instability. Otherwise, denies any shortness of breath, chest pain, nausea, vomiting or any other joint complaints. SOCIAL HISTORY: Nonsmoker and nondrinker. PAST SURGICAL HISTORY: in 1979, shoulder replacement in 2001 and bilateral hip surgery. MEDICATIONS: 1. Cilexetil 4 mg daily. 2. Hydrochlorothiazide 25 mg daily. 3. Omeprazole 20 mg daily. 4. Atorvastatin 40 mg daily. 5. Amlodipine 2.5 mg daily. 6. Metformin 500 mg twice daily. 7. Aspirin 81 mg daily. 8. Tylenol Arthritis 650 mg 4 times daily. 9. Vitamin D 1000 units daily. 10. Fish oil 1 capsule 500 mg daily. 11. Glucosamine chondroitin 1 tablet twice daily. 12. Vitamin B complex 1 tablet daily. 13. Mucinex 1 tablet daily. 14. Ocuvite 1 tablet one time daily. ALLERGIES: INCLUDE PENICILLIN, AMBIEN. PHYSICAL EXAMINATION: GENERAL: Well-developed, well-nourished 79-year-old female in no acute distress. She is alert and oriented x3 and pleasant. HEENT: Normocephalic, atraumatic. Extraocular motions are intact. Pupils are equal and reactive to light. HEART: Regular rate and rhythm, no murmurs. LUNGS: Clear. ABDOMEN: Soft, nontender, bowel sounds present. EXTREMITIES: Right knee reveals limited range of motion of 0-95. Positive effusion, positive valgus deformity. Positive lateral joint line tenderness, 5/5 strength. Neurologically and neurovascularly intact in the right lower extremity. DIAGNOSES: Right knee end-stage osteoarthritis, temporomandibular joint, spine problems, sciatica. PLAN: The patient was advised of her diagnosis. Indications, risks, benefits, postop course have all been reviewed. The patient wished to proceed with a right total knee arthroplasty. Necessary consent forms, preoperative testing and clearances will be obtained.
[2020-01-19] MEDS ORDERED: VANCOMYCIN HCL 1,500 MG in SODIUM CHLORIDE 0.9% 500 ML IV SCH ×2 (06:00→18:00)
[2020-01-19] MEDS ORDERED: GABAPENTIN 300 MG CAP PO SCH (06:00)
[2020-01-19] MEDS ORDERED: FAMOTIDINE 20 MG TAB PO SCH (06:00)
[2020-01-19] MEDS ORDERED: TRANEXAMIC ACID 1,000 MG **IV Pre-op IV SCH (06:00)
[2020-01-19] MEDS ORDERED: TRANEXAMIC ACID 1,000 MG **IV Intra-op IV SCH (06:00)
[2020-01-19] MEDS ORDERED: ACETAMINOPHEN 500 MG TAB PO SCH (06:00)
[2020-01-19] MEDS ORDERED: ROPIVACAINE 0.5% HCL/PF 150 MG, BUPIVACAINE 0.5% MPF 30 ML, EPINEPHrine 30MG/30ML (OR U... INFIL SCH (06:00)
[2020-01-19] MEDS ORDERED: METOCLOPRAMIDE HCL 10 MG TABLET PO SCH (06:00)
[2020-01-19] MEDS ORDERED: LR 500ML BOLUS, THEN 15ML/HR IV SCH (06:00)
[2020-01-19] MEDS ORDERED: CeleBREX 200 MG CAP PO SCH (06:00)
[2020-01-19] MEDS ORDERED: BUPIVACAINE 0.5 % 5 MG/1 ML PF 10ML VIAL ONE (06:26)
[2020-01-19] MEDS ORDERED: BUPIVACAINE 0.25% 30 ML VIAL ONE (06:26)
[2020-01-19] MEDS ORDERED: ORTHO JOINT ANESTHETIC ONE (06:33)
[2020-01-19] MEDS ORDERED: BACITRACIN INJ 50,000 UNIT VIAL ONE (06:33)
[2020-01-19] MEDS ORDERED: MIDAZOLAM HCL 1 MG/ML 2ML VIAL ONE (06:40)
[2020-01-19] MEDS ORDERED: fentaNYL citrate 100 MCG/2 ML VIAL ONE (06:40)
[2020-01-19] MEDS ORDERED: PROPOFOL IV EMULSION 10 MG/ML 20 ML VIAL IV ONE ×2 (06:40→08:27)
[2020-01-19] MEDS ORDERED: LIDOCAINE HCL 2% 2 ML VIAL/AMP(20MG/ML) INFIL ONE (06:40)
[2020-01-19] MEDS ORDERED: fentaNYL citrate 100 MCG/2 ML VIAL IV PRN (06:49)
[2020-01-19] MEDS ORDERED: ePHEDrine sulfate 50 MG/ML AMP IV PRN (06:49)
[2020-01-19] MEDS ORDERED: ATROPINE SULFATE 0.1 MG/ML 10ML SYR IV PRN (06:49)
--- NOTE | 2020-01-19 06:54 | History & Physical Bridge Note ---
Date of Service January 19, 2020 History & Physical Bridge Note I have examined the patient, reviewed the History & Physical and in the interval since the performance of the History & Physical I have noted the following changes of clinical significance: no changes noted
--- NOTE | 2020-01-19 08:46 | Operative Report ---
Post Operative Report Pre & Post Diagnosis Operation Date: 01/19/20 07:00 Pre-Op Diagnosis: RIGHT KNEE OSTEOARTHRITIS, obesity BMI 36 Post-Op Diagnosis: RIGHT KNEE OSTEOARTHRITIS, obesity BMI 36 I identified the patient and participated in the time-out.: Yes Procedure Operation Date: 01/19/20 07:00 Actual Procedures p Right Total Knee Arthroplasty(Right) - Bryce Guaman MD Superficial wound VAC application Surgeon Bryce Guaman MD Traveling Secretary APRIL Fernandez Estimated Blood Loss 10 Findings Consistent with Post-Op Diagnosis Specimens Bone cuts Drains 2 Hemovac Anesthesia Type MAC Spinal Regional Complications none Disposition Accompanied Patient To Recovery: No Disposition: Recovery Room Indications 79-year-old female with osteoarthritis multiple joints with osteoarthritis bilateral knees right greater than left. Patient has a valgus knee she is [id number] patellofemoral joint and lateral compartment. Description of Procedure Patient taken to the operating room the size under spinal MAC regional anesthesia. Patient was placed supine on the operating table. A pneumatic tourniquet was placed about the obese right upper thigh. The right lower extremity was prepped and draped in sterile fashion. Knee exam demonstrated 10 degree flexion contracture with flexion of 125 degrees. No instability patellofemoral crepitation moderate effusion moderate obesity. The leg was elevated exsanguinated with an Esmarch bandage and pneumatic tourniquet was raised to 350 millimeters of mercury. Skin incised sharply in longitudinal fashion. Subcutaneous flaps elevated. Incision was made through the medial retinaculum extending up in the mid third of the quadriceps tendon and down to the medial tibial tubercle. Intra-articular findings demonstrated tricompartmental osteoarthritis with [id number] in the lateral compartment grade 4 medial femoral condyle lesion and grade 4 patellofemoral osteoarthritis tricompartmental osteophytes. The SmartShoot triathlon total knee arthroplasty system was used. To expose the knee the infrapatellar fat pad was resected. The meniscal remnants and cruciate ligaments were resected. The anterior fat pad over the femur in the area of the anterior flange of the femoral component was resected. Lateral synovial bands release. The femur was exposed. An intramedullary drill hole was made into the canal. A guide rico was placed. Distal femoral cutting guide was adjusted to resect a 5 degree valgus cut with 10 millimeters distal femur resected. The knee was extended and a subperiosteal peel lateral release was performed around the patella. Patella width was measured and width was reproduced using a freehand cut technique and a 36 symmetrical patella component. The 3 drill holes were made and the excess lateral facet was beveled off to prevent any impingement. Attention was taken back to the femur which was exposed with retractors and the femoral sizing guide was pinned in position. The drill holes were placed in 3 of external rotation to match epicondylar axis. Femur sized for a 6 posterior stabilized component. The 4-in-1 cutting block was placed and then the anterior posterior and chamfer cuts are made. The tibia was then subluxed. The external tibial cutting guide was just to make a perpendicular cut to the long axis of the tibia below the most deficient bone loss side. A lamina systems integration advisor was used and the flexion extension gaps were balanced. All posterior osteophytes removed. All meniscal remnants were resected. The tibia exposed and the trial tibial component size 5 was externally rotated in line with the tibial tubercle and pinned in position. The punch for stem was used. The notch cutting device was centered appropriately and the femoral notch cut was made. The femoral trial was inserted. Trial tibial inserts were placed and size 11 posterior stabilized gave balanced ligaments through flexion and extension. Patella tracking was assessed. The patella tracked centrally. The trial components were then removed and the orthomix anesthetic cocktail was injected per protocol. The knee was then copiously irrigated with pulsatile lavage antibiotic solution. Final components were then cemented with Simplex cement. Final components were Yu triathlon size 6 right posterior stabilized femoral component, 5 primary tibial baseplate, distal fixation pegs on femoral component, tibial bearing 5 x 11 posterior stabilized and 36 x 10 symmetrical patella all polyethylene was X 3 poly. While the cement cured the Betadine soak was used per protocol. After cement cured further pulsatile lavage irrigation performed and 2 Hemovac drains were brought out laterally. The quadriceps tendon and medial retinaculum were closed with figure of 8 #1 Vicryl sutures. The knee was taken through full range of motion and the repair was secure. The subcutaneous tissues were closed with 2-0 Vicryl sutures. Skin was closed with jamie. Denise superficial wound VAC was applied. Patient tolerated the procedure well. Al CHEN was my physician shampoo assistant who assisted in patient positioning prepping and draping,leg positioning ,soft tissue retraction and instrument management and participated in the closing and will participate in postoperative care of the patient. I attest to the content of the Intraoperative Record and any orders documented therein. Any exceptions are noted below.
--- NOTE | 2020-01-19 09:50 | XRay Report ---
XR knee RT 1 or 2V routine CLINICAL HISTORY: Surgical Post Op COMPARISON: None. DISCUSSION: Anatomic alignment post total right knee arthroplasty. Good contact between prosthetic an d underlying bone. Impacted soft tissue postoperative change IMPRESSION: Anatomic alignment post total right knee arthroplasty. ACT 112: Negative or not required by law. The above report was generated using voice recognition software. It may contain grammatical, syntax or spelling errors. Electronically signed by: Al Mercado M.D. 01/19/2020 9:49 AM
[2020-01-19] MEDS ORDERED: bisacodyL 10 MG SUPP PR PRN (10:42)
[2020-01-19] MEDS ORDERED: ONDANSETRON INJ 2 MG/ML 2 ML VIAL IV PRN (10:42)
[2020-01-19] MEDS ORDERED: NALOXONE HCL 0.4 MG/1 ML VIAL/CARP IV PRN (10:42)
[2020-01-19] MEDS ORDERED: VANCOMYCIN CONSULT ACTIVE PRN (10:42)
[2020-01-19] MEDS ORDERED: HYDROmorphone INJ 0.5 MG/0.5 ML SYR IV PRN (10:42)
[2020-01-19] MEDS ORDERED: MAGNESIUM HYDROXIDE SUSP 30 ML UDC PO PRN (10:42)
[2020-01-19] MEDS ORDERED: ONDANSETRON INJ 2 MG/ML 2 ML VIAL ONE (10:46)
[2020-01-19] MEDS: SODIUM CHLORIDE 0.9% 1000ML 1,000 ML IV SCH ×2 (10:52→21:15)
[2020-01-19] MEDS ORDERED: PHARMACY GLYCEMIC MGMT CONSULT PRN (11:08)
--- NOTE | 2020-01-19 11:11 | Pharmacy Report ---
Glycemic Control Consultation - Date of Service January 19, 2020 - Scope Scope: Glycemic Pharmacist consulted for glycemic control and to write orders per [facility] inpatient glycemic control protocol. - Objective Weight: 105.2 kg Accuchecks BSG (last 24hrs): 01/19/20 01/19/20 05:44 09:23 POC Glucose 128 H 103 H - Recent Pertinent Medications Outpatient Anti-diabetic Regimen: * Metformin 500 mg PO BIDM * A1c = 6.2 % (12/02/19) - Assessment & Plan Assessment & Plan: ASSESSMENT: * KINGSLEY is a 79 year old female POD #0 s/p right TKA * Received intra-articular ortho mix intraoperatively * BSGs this morning of 128 mg/dL and 103 mg/dL PLAN FOR INPATIENT GLYCEMIC CONTROL: * Holding outpatient oral diabetes medications * Consider restarting metformin tomorrow * Basal insulin * Hold * Bolus insulin - hold carb coverage for now * NovoLog per scale ACHS or Q6hrs while NPO * Goal Range: Low 110 mg/dL - High 150 mg/dL * Correction Factor: 30 mg/dL/unit * Please note that the plan above was derived based on current level of insulin resistance and hospital stress. These recommendations are appropriate for inpatient admission only. Plan of care upon discharge will need to be reassessed to avoid potential outpatient hypo/hyperglycemia. Thank you.
[2020-01-19] MEDS ORDERED: DEXTROSE 50% 50 ML SYRINGE IV PRN (11:15)
[2020-01-19] MEDS ORDERED: GLUCAGON FOR INJ 1 MG VIAL IM PRN (11:15)
[2020-01-19] MEDS ORDERED: CARBOHYDRATES FOR HYPOGLYCEMIA PO PRN (11:15)
[2020-01-19] MEDS ORDERED: GLUCOSE 40% GEL 15 GM TUBE PO PRN (11:15)
[2020-01-19] MEDS ORDERED: GLUCOSE 10 TABS/TUBE PO PRN (11:15)
[2020-01-19] MEDS: ACETAMINOPHEN 500 MG TAB PO SCH ×2 (13:28→21:07)
[2020-01-19] MEDS: INSULIN ASPART 100 UNITS/ML 3 ML PEN SC SCH ×3 (13:30→21:12)
[2020-01-19] MEDS: OXYCODONE HCL IR 5 MG TAB (IMMEDIATE RELEASE) PO PRN ×2 (16:35→23:02)
[2020-01-19] MEDS: CANDESARTAN: ORDER AWAITING ACTION SCH (16:36)
--- NOTE | 2020-01-19 16:59 | Anesthesiology Progress Note ---
Date of Service January 19, 2020 Anesthesia Post Procedure Vital Signs Vital Signs: Temp Pulse Pulse Pulse Resp BP Pulse Ox 01/19/20 16:21 95 01/19/20 15:20 36.2 C L 64 16 113/72 98 01/19/20 13:24 59 L 16 130/68 96 01/19/20 12:27 58 L 16 117/71 97 01/19/20 11:32 64 16 130/76 100 01/19/20 10:59 60 16 131/79 96 01/19/20 10:25 36.4 C L 60 16 144/83 H 98 01/19/20 10:15 36.3 C L 60 13 124/72 96 01/19/20 10:05 61 12 122/67 97 01/19/20 09:55 60 16 122/64 96 01/19/20 09:45 60 13 120/68 96 01/19/20 09:35 60 14 114/60 97 01/19/20 09:25 60 14 114/62 99 01/19/20 09:18 36.2 C L 65 16 115/59 L 100 01/19/20 05:49 36.7 C 73 18 148/73 H 97 Pain Intensity Right Knee: Pain Intensity: 0 Transfer of Care Handoff Completed per policy Notes Mental Status: alert / awake / arousable and participated in evaluation Patient Amnestic to Procedure: Yes Nausea / Vomiting: adequately controlled Pain: adequately controlled Airway Patency, RR, SpO2: stable & adequate BP & HR: stable & adequate Hydration State: stable & adequate Neuraxial Anesthesia: was administered and sensory block is resolving Anesthetic Complications: no major complications apparent and Pt Satisfied with anesthetic care
[2020-01-19] MEDS: CeleBREX 200 MG CAP PO SCH (21:04)
[2020-01-19] MEDS: ASPIRIN 81 MG ECTAB PO SCH (21:05)
[2020-01-19] MEDS: CHOLECALCIFEROL 1,000 UNITS 25 MCG TAB PO SCH (21:05)
[2020-01-19] MEDS: DOCUSATE SODIUM 100 MG CAP PO SCH (21:06)
[2020-01-19] MEDS: VITAMIN B COMPLEX TAB PO SCH (21:06)
[2020-01-19] MEDS: SENNA 8.6 MG TAB PO SCH (21:06)
--- NOTE | 2020-01-19 22:01 | Consultation ---
Date of Consultation January 19, 2020 Assessment & Plan (1) HTN (hypertension): BP stable continue on Norvasc, Candesartan check BMP in the AM (2) DM type 2 (diabetes mellitus, type 2): diabetic diet patient wants to avoid using Novolog resume Metformin on d/c (3) S/P total knee arthroplasty: pain control, DVT prophylaxis, d/c planning per ortho check labs in AM encouraged deep breathing, ISB use History of Present Illness Requesting Physician: Dr. Guaman Reason for Consultation: Medical management Attending Physician: Bryce Guaman MD History of Present Illness Patient presents for elective right TKA for arthritis, elevated BMI. Patient doing well, sensation starting to return as nerve block wears off. No severe pain in knee at this time. No chest pain, no dyspnea, no nausea. Has h/o HTN, DM type II. She says her BP is well controlled on her medications, never elevated. She follows a low carb diet and takes her metformin. 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 Coronado. Allergies Allergy/AdvReac Type Severity Reaction Status Date / Time bee venom protein (honey bee) Allergy MO HIVES Verified 01/19/20 05:34 ampicillin Allergy U FLU-LIKE Verified 01/19/20 05:34 SYMPTOMS Penicillins Allergy U FAMILY HX Verified 01/19/20 05:34 - PT HAS NEVER TAKEN prednisone Allergy EXTREME Verified 01/19/20 05:34 WEAKNESS zolpidem AdvReac MO Very Verified 01/19/20 05:34 Sedated. Lasted too long. Home Medications Home Medications Medication Instructions Recorded Confirmed Type Glucosamine Chondroitin PLUS 1 cap PO BID 08/04/18 01/19/20 History acetaminophen [Tylenol Arthritis 650 mg PO 5XD 08/04/18 01/19/20 History Pain] cholecalciferol (vitamin D3) 1,000 unit PO HS 08/04/18 01/11/20 History [Vitamin D3] metformin 500 mg PO BIDM 08/04/18 01/11/20 History omega 0-ljq-rns-fish oil [Fish Oil] 1 cap PO HS 08/04/18 01/19/20 History vitamin A-vitamin C-vit E-min 1 tab PO QAM 02/22/19 01/11/20 History candesartan 4 mg tablet 4 mg PO QAM 03/08/19 01/19/20 History hydrochlorothiazide 25 mg tablet 25 mg PO QAM #90 tab 04/23/19 01/19/20 Rx amlodipine 2.5 mg PO QAM 01/05/20 01/19/20 History aspirin [Aspir-81] 81 mg PO QAM 01/05/20 01/11/20 History atorvastatin 40 mg PO QAM 01/05/20 01/11/20 History vitamin B complex-folic acid [B 1 tab PO PM 01/05/20 01/11/20 History Complex 100] omeprazole 20 mg capsule,delayed 20 mg PO Q OTHER DAY cap 01/11/20 01/11/20 History release Patient History Medical History Asthma NO LONGER USES INHALER. OCC SOB Chronic back pain Degenerative disc disease DM type 2 (diabetes mellitus, type 2) "PRE DIABETES PER PATIENT" GERD (gastroesophageal reflux disease) HTN (hypertension) PT STATES SHE DOES NOT HAVE Migraine HX Obesity Osteoarthritis Pacemaker [employer]> DUE TO 3RD DEGREE HEART BLOCK. FOLLOWS WITH JOSE AND ABEBE ELIZALDE> GETTING CHECKED ON 01/11/20 Scoliosis Sleep apnea NO CPAP> VERY MILD Third degree heart block (Inactive) s/p PPM Venous insufficiency Surgical History H/O section H/O shoulder surgery left History of colonoscopy History of dilatation and curettage History of excision of mass soft tissue tumor of back subcutaneous History of tooth extraction History of total hip replacement right and left 2012 Hx of bilateral cataract extraction Family History Grandmother (Maternal) Cardiac disorder Grandmother (Paternal) Diabetes Hypertension Father Hypertension age 97 from pneumonia Mother Stroke, Onset Age: 80 age 80 from CVA Brother Multiple sclerosis Social History Preferred Language: [place] Communication Ability: Effective Visual Impairment: No Limitations Logistics Operations Director Required: No Beliefs That Will Affect Care: Taoist Current Living Situation: Personal Care Facility Current Living Situation Comment: lives at [facility] current occupational status: retired Other Information That Helps Us Care for You: No Feels Safe at Home: Yes Safety Concerns: Feels Safe At This Time Smoking Status: Never smoker Do You Dip or Chew Tobacco: No ; Second Hand Exposure: Yes ( USED TO YRS AGO) ; Tobacco Cessation Education Requested by Patient: No Hx Alcohol Use: No Hx Substance Use: No Review of Systems Review of Systems: All systems reviewed & are unremarkable except as noted in HPI & below Musculoskeletal: + joint pain (mild pain right knee) Physical Exam Constitutional: well developed, well nourished and + obese; no acute distress Eyes: PERRL, conjunctivae normal, anicteric sclerae ENMT: external ear and nose normal, oropharynx normal Neck: trachea midline, no thyromegaly Respiratory: normal respiratory effort, lungs clear to auscultation Cardiovascular: RRR, no murmur, no edema Gastrointestinal (Abdomen): normal bowel sounds, soft, nontender, no hepatosplenomegaly Musculoskeletal: Head/Neck/Chest: normocephalic, head atraumatic and neck supple Extremities: strength 5/5 throughout; + extremities abnormal to inspection (right knee swollen, immobilized, drain in place) Skin: no rashes, warm and dry Neurologic: patellar DTR's 2+ bilat, sensation intact and PERRL, EOMI, accommodation nl, no face palsy, no dysarthria Psychiatric: A+Ox3, euthymic affect Lymphatic: no cervical or axillary lymphadenopathy Results & Data ([facility]) Vital Signs (Past 12 Hours) Vital Signs Temp Pulse Pulse Pulse Resp BP Pulse Ox 01/19/20 18:25 36.5 C 71 16 116/67 91 01/19/20 16:21 95 01/19/20 15:20 36.2 C L 64 16 113/72 98 01/19/20 13:24 59 L 16 130/68 96 01/19/20 12:27 58 L 16 117/71 97 01/19/20 11:32 64 16 130/76 100 01/19/20 10:59 60 16 131/79 96 01/19/20 10:25 36.4 C L 60 16 144/83 H 98 01/19/20 10:15 36.3 C L 60 13 124/72 96 01/19/20 10:05 61 12 122/67 97 Medications Administered Current Inpatient Medications Acetaminophen (Tylenol) 1,000 mg PO Q8 [facility] Stop: 02/18/20 13:59 Last Admin: 07/08/20 21:07 Dose: 1,000 mg Documented by: Amlodipine Besylate (Norvasc) 2.5 mg PO QAM [facility] Stop: 02/19/20 08:59 Aspirin (Ecotrin Ectab) 81 mg PO BID [facility] Stop: 02/18/20 20:59 Last Admin: 01/19/20 21:05 Dose: 81 mg Documented by: Atorvastatin Calcium (Lipitor) 40 mg PO QAM [facility] Stop: 02/19/20 08:59 Bisacodyl (Dulcolax) 10 mg HI DAILY PRN PRN Reason: Constipation Stop: 02/18/20 10:41 Celecoxib (Celebrex) 200 mg PO BID [facility] Stop: 02/18/20 20:59 Last Admin: 01/19/20 21:04 Dose: Not Given Documented by: Dextrose (Dextrose 50%) 25 - 50 ml IV UD PRN; Protocol PRN Reason: Hypoglycemia Protocol Stop: 02/18/20 11:14 Diphenhydramine HCl (Benadryl Capsule) 25 mg PO Q8H PRN PRN Reason: Itching Stop: 02/18/20 10:41 Docusate Sodium (Colace) 100 mg PO BID [facility] Stop: 02/18/20 20:59 Last Admin: 01/19/20 21:06 Dose: 100 mg Documented by: Glucagon (Glucagen) 1 mg IM UD PRN; Protocol PRN Reason: Hypoglycemia Protocol Stop: 02/18/20 11:14 Glucose (Glucose 40%) 15 - 30 gm PO UD PRN; Protocol PRN Reason: Hypoglycemia Protocol Stop: 02/18/20 11:14 Glucose (Dex4 Glucose) 4 - 8 tabs PO UD PRN; Protocol PRN Reason: Hypoglycemia Protocol Stop: 02/18/20 11:14 Hydrochlorothiazide (Hctz) 25 mg PO QAM [facility] Stop: 02/19/20 08:59 Hydromorphone HCl (Dilaudid) 0.5 mg IV Q4H PRN PRN Reason: Pain or Pre PT Stop: 02/02/20 10:41 Sodium Chloride (Nss 1000ml) 1,000 mls @ 100 mls/hr IV .Q10H [facility] Stop: 01/20/20 06:00 Last Admin: 01/19/20 21:15 Dose: 100 mls/hr Documented by: Vancomycin HCl 1,500 mg/ (Sodium Chloride) 530 mls @ 125 mls/hr IV TODAY@1800 [facility] Stop: 01/19/20 22:15 Last Admin: 01/19/20 17:32 Dose: 125 mls/hr Documented by: Insulin Aspart (Novolog Flexpen) 0 units SC ACHS [facility] Stop: 02/18/20 11:29 Last Admin: 01/19/20 21:12 Dose: Not Given Documented by: Magnesium Hydroxide (Milk Of Magnesia) 30 ml PO Q6H PRN PRN Reason: Constipation Stop: 02/18/20 10:41 Miscellaneous (Order Awaiting Action) 1 ea N/A QS [facility] Stop: 02/18/20 15:59 Last Admin: 01/19/20 16:36 Dose: Not Given Documented by: Miscellaneous (Carbohydrates For Hypoglycemia) 15 - 30 gm PO UD PRN PRN Reason: Hypoglycemia Treatment Stop: 02/18/20 11:14 Miscellaneous Information (Consult Glycemic Management Pharmacy) 1 ea N/A UD PRN PRN Reason: Consult Stop: 02/18/20 11:07 Multivitamins (Multivitamin Tab) 1 tab PO QAM [facility] Stop: 02/19/20 08:59 Naloxone HCl (Narcan) 0.1 mg IV Q5M PRN PRN Reason: Oversedation/Resp Depression Stop: 02/18/20 10:41 Ondansetron HCl (Zofran) 4 mg IV Q6H PRN PRN Reason: Nausea And Vomiting Stop: 02/18/20 10:41 Oxycodone HCl (Roxicodone Immediate Rel) 5 - 10 mg PO Q4H PRN PRN Reason: Pain or Pre PT Stop: 02/02/20 10:41 Last Admin: 01/19/20 16:35 Dose: 5 mg Documented by: Sennosides (Senokot) 17.2 mg PO HS [facility] Stop: 02/18/20 20:59 Last Admin: 01/19/20 21:06 Dose: 17.2 mg Documented by: Vitamin B Complex (Vitamin B Complex) 1 tab PO PM [facility] Stop: 02/18/20 20:59 Last Admin: 01/19/20 21:06 Dose: 1 tab Documented by: Vitamin D (Vitamin D3) 1,000 units PO HS [facility] Stop: 02/18/20 20:59 Last Admin: 01/19/20 21:05 Dose: 1,000 units Documented by: PG Care Time/CCT Total # of Minutes Spent Total Time Spent with Patient: Total time spent is greater than 50% in coordination of care (as documented) at patient's floor/unit and/or counseling patient: Coding Level of Care Code 45998 Inpt Consult Level 2 Diagnoses HTN (hypertension) I10 DM type 2 (diabetes mellitus, type 2) E11.9 S/P total knee arthroplasty Z96.659
[2020-01-20] MEDS: CANDESARTAN: ORDER AWAITING ACTION SCH ×4 (00:15→23:39)
[2020-01-20] MEDS: OXYCODONE HCL IR 5 MG TAB (IMMEDIATE RELEASE) PO PRN ×4 (03:26→18:14)
[2020-01-20] MEDS: ACETAMINOPHEN 500 MG TAB PO SCH ×3 (05:37→21:34)
[2020-01-20 06:28] LABS: Hematocrit (blood only) 36.5 % (37-47); Hemoglobin 11.5 g/dL (12.0-16.0); Mean Corpuscular Hemoglobin 30.1 pg (25-34); Mean Corpuscular Hgb Conc 31.5 g/dL (32-36); Mean Corpuscular Volume 95.5 fL (80-100); Mean Platelet Volume 10.6 fL (7.4-10.4); Platelet Count 185 K/uL (130-400); RDW Coefficient of Variation 13.8 % (11.5-14.5); RDW Standard Deviation 47.5 fL (36.4-46.3); Red Blood Count 3.82 M/uL (4.2-5.4); White Blood Count 10.59 K/uL (4.8-10.8)
[2020-01-20 06:43] LABS: BUN Creatinine Ratio 20.4 (10-20); Calcium 8.3 mg/dl (8.5-10.1); Creatinine Clr Calc Pharmacy 78.4 ml/min; Est GFR (African American) 89.1; Est GFR (Non-African American) 76.9; Potassium 3.8 mmol/L (3.5-5.1)
--- NOTE | 2020-01-20 07:35 | Anesthesiology Progress Note ---
Date of Service January 20, 2020 Anesthesia Post Procedure Vital Signs Vital Signs: Temp Pulse Pulse Pulse Resp BP Pulse Ox 01/20/20 02:58 36.6 C 73 16 117/69 93 01/19/20 23:40 36.4 C L 62 14 119/70 93 01/19/20 18:25 36.5 C 71 16 116/67 91 01/19/20 16:21 95 01/19/20 15:20 36.2 C L 64 16 113/72 98 01/19/20 13:24 59 L 16 130/68 96 01/19/20 12:27 58 L 16 117/71 97 01/19/20 11:32 64 16 130/76 100 01/19/20 10:59 60 16 131/79 96 01/19/20 10:25 36.4 C L 60 16 144/83 H 98 01/19/20 10:15 36.3 C L 60 13 124/72 96 01/19/20 10:05 61 12 122/67 97 01/19/20 09:55 60 16 122/64 96 01/19/20 09:45 60 13 120/68 96 01/19/20 09:35 60 14 114/60 97 01/19/20 09:25 60 14 114/62 99 01/19/20 09:18 36.2 C L 65 16 115/59 L 100 Pain Intensity Right Knee: Pain Intensity: 0 Transfer of Care Handoff Completed per policy Notes Mental Status: alert / awake / arousable Nausea / Vomiting: adequately controlled Pain: adequately controlled Airway Patency, RR, SpO2: stable & adequate BP & HR: stable & adequate Hydration State: stable & adequate Neuraxial Anesthesia: was administered and sensory block resolved Anesthetic Complications: no major complications apparent and Pt Satisfied with anesthetic care
[2020-01-20] MEDS: MULTIVITAMIN TAB PO SCH (08:10)
[2020-01-20] MEDS: AMLODIPINE BESYLATE 5 MG TAB PO SCH (08:14)
[2020-01-20] MEDS: DOCUSATE SODIUM 100 MG CAP PO SCH ×2 (08:15→20:22)
[2020-01-20] MEDS: ATORVASTATIN 40 MG TAB PO SCH (08:15)
[2020-01-20] MEDS: ASPIRIN 81 MG ECTAB PO SCH ×2 (08:16→20:22)
[2020-01-20] MEDS: hydroCHLOROthiazide 25 MG TAB PO SCH (08:16)
[2020-01-20] MEDS: CeleBREX 200 MG CAP PO SCH ×2 (08:16→20:21)
[2020-01-20] MEDS ORDERED: VITAMIN A VITAMIN C VIT E MIN PO SCH (09:00)
[2020-01-20] MEDS: INSULIN ASPART 100 UNITS/ML 3 ML PEN SC SCH ×4 (09:17→20:49)
--- NOTE | 2020-01-20 10:56 | Orthopedic Progress Note ---
Date of Service January 20, 2020 Assessment & Plan (1) S/P total knee arthroplasty: POD #1, Right TKA PT/ OT DVT proph- ASA D/C planning- To [facility]. As per medicine. AM labs stable. Admission and Anticipated Discharge Date Admission Date: January 19, 2020 Subjective POD #1, Feeling well. Denies SOB, CP, N/V, dizziness. Pain controlled well. Wishes to go to [facility] upon D/C. Physical Exam Physical Exam: Right knee dressings c/d/i, no drainage. Toes/ ankle mobile. No calf tenderness. N/V+ A&Ox3. Results & Data ([facility]) Vital Signs (Past 12 Hours) Vital Signs Temp Pulse Resp BP Pulse Ox 01/20/20 07:56 36.7 C 64 18 125/75 95 01/20/20 02:58 36.6 C 73 16 117/69 93 01/19/20 23:40 36.4 C L 62 14 119/70 93
[2020-01-20] MEDS: SENNA 8.6 MG TAB PO SCH (20:23)
[2020-01-20] MEDS: CHOLECALCIFEROL 1,000 UNITS 25 MCG TAB PO SCH (20:23)
[2020-01-20] MEDS: VITAMIN B COMPLEX TAB PO SCH (20:24)
--- NOTE | 2020-01-20 23:50 | Hospitalist Progress Note ---
Date of Service January 20, 2020 Assessment & Plan (1) HTN (hypertension): BP stable continue on Norvasc, Candesartan Cr stable this morning (2) DM type 2 (diabetes mellitus, type 2): diabetic diet patient wants to avoid using Novolog resume Metformin on d/c sugars stable (3) S/P total knee arthroplasty: pain control, DVT prophylaxis, d/c planning per ortho labs stable medicine will sign off, patient stable for discharge Admission and Anticipated Discharge Date Admission Date: January 19, 2020 Physical Exam Constitutional: well developed, well nourished and + obese; no acute distress Eyes: PERRL, conjunctivae normal, anicteric sclerae ENMT: external ear and nose normal, oropharynx normal Neck: trachea midline, no thyromegaly Respiratory: normal respiratory effort, lungs clear to auscultation Cardiovascular: RRR, no murmur, no edema Gastrointestinal (Abdomen): normal bowel sounds, soft, nontender, no hepatosplenomegaly Musculoskeletal: Head/Neck/Chest: normocephalic, head atraumatic and neck supple Extremities: strength 5/5 throughout; + extremities abnormal to inspection (right knee swollen, immobilized, drain in place) Skin: no rashes, warm and dry Neurologic: patellar DTR's 2+ bilat, sensation intact and PERRL, EOMI, accommodation nl, no face palsy, no dysarthria Psychiatric: A+Ox3, euthymic affect Lymphatic: no cervical or axillary lymphadenopathy Results & Data Results & Data ([facility]) Vital Signs (Past 12 Hours) Vital Signs Temp Pulse Resp BP Pulse Ox 01/20/20 23:05 37.1 C 82 15 137/76 93 01/20/20 15:04 36.7 C 73 17 123/73 97 Laboratory Results Laboratory Results - last 24 hr 01/20/20 01/20/20 01/20/20 06:00 06:00 08:01 WBC 10.59 RBC 3.82 L Hgb 11.5 L Hct 36.5 L MCV 95.5 MCH 30.1 MCHC 31.5 L RDW Std Deviation 47.5 H RDW Coeff of Uvaldo 13.8 Plt Count 185 MPV 10.6 H Sodium 139 Potassium 3.8 Chloride 107 Carbon Dioxide 27 Anion Gap 5.0 BUN 15 Creatinine 0.75 Est Cr Clr Drug Dosing 78.4 Est GFR ( Amer) 89.1 Est GFR (Non-Af Amer) 76.9 BUN/Creatinine Ratio 20.4 H Glucose 104 H POC Glucose 100 H Calcium 8.3 L SARS-CoV-2 RNA (RT-PCR) 01/20/20 01/20/20 01/20/20 12:01 15:30 17:00 WBC RBC Hgb Hct MCV MCH MCHC RDW Std Deviation RDW Coeff of Uvaldo Plt Count MPV Sodium Potassium Chloride Carbon Dioxide Anion Gap BUN Creatinine Est Cr Clr Drug Dosing Est GFR ( Amer) Est GFR (Non-Af Amer) BUN/Creatinine Ratio Glucose POC Glucose 141 H 111 H Calcium SARS-CoV-2 RNA (RT-PCR) Pending 01/20/20 01/20/20 20:22 Unknown WBC RBC Hgb Hct MCV MCH MCHC RDW Std Deviation RDW Coeff of Uvaldo Plt Count MPV Sodium Potassium Chloride Carbon Dioxide Anion Gap BUN Creatinine Est Cr Clr Drug Dosing Est GFR ( Amer) Est GFR (Non-Af Amer) BUN/Creatinine Ratio Glucose POC Glucose 131 H Calcium SARS-CoV-2 RNA (RT-PCR) Cancelled Medications Administered Current Inpatient Medications Acetaminophen (Tylenol) 1,000 mg PO Q8 [facility] Stop: 02/18/20 13:59 Last Admin: 01/20/20 21:34 Dose: 1,000 mg Documented by: Amlodipine Besylate (Norvasc) 2.5 mg PO QAM [facility] Stop: 02/19/20 08:59 Last Admin: 01/20/20 08:14 Dose: 2.5 mg Documented by: Aspirin (Ecotrin Ectab) 81 mg PO BID [facility] Stop: 02/18/20 20:59 Last Admin: 01/20/20 20:22 Dose: 81 mg Documented by: Atorvastatin Calcium (Lipitor) 40 mg PO QAM [facility] Stop: 02/19/20 08:59 Last Admin: 01/20/20 08:15 Dose: 40 mg Documented by: Bisacodyl (Dulcolax) 10 mg SD DAILY PRN PRN Reason: Constipation Stop: 02/18/20 10:41 Celecoxib (Celebrex) 200 mg PO BID [facility] Stop: 02/18/20 20:59 Last Admin: 01/20/20 20:21 Dose: 200 mg Documented by: Dextrose (Dextrose 50%) 25 - 50 ml IV UD PRN; Protocol PRN Reason: Hypoglycemia Protocol Stop: 02/18/20 11:14 Diphenhydramine HCl (Benadryl Capsule) 25 mg PO Q8H PRN PRN Reason: Itching Stop: 02/18/20 10:41 Docusate Sodium (Colace) 100 mg PO BID [facility] Stop: 02/18/20 20:59 Last Admin: 01/20/20 20:22 Dose: 100 mg Documented by: Glucagon (Glucagen) 1 mg IM UD PRN; Protocol PRN Reason: Hypoglycemia Protocol Stop: 02/18/20 11:14 Glucose (Glucose 40%) 15 - 30 gm PO UD PRN; Protocol PRN Reason: Hypoglycemia Protocol Stop: 02/18/20 11:14 Glucose (Dex4 Glucose) 4 - 8 tabs PO UD PRN; Protocol PRN Reason: Hypoglycemia Protocol Stop: 02/18/20 11:14 Hydrochlorothiazide (Hctz) 25 mg PO QAM [facility] Stop: 02/19/20 08:59 Last Admin: 01/20/20 08:16 Dose: 25 mg Documented by: Hydromorphone HCl (Dilaudid) 0.5 mg IV Q4H PRN PRN Reason: Pain or Pre PT Stop: 02/02/20 10:41 Insulin Aspart (Novolog Flexpen) 0 units SC ACHS [facility] Stop: 02/18/20 11:29 Last Admin: 01/20/20 20:49 Dose: Not Given Documented by: Magnesium Hydroxide (Milk Of Magnesia) 30 ml PO Q6H PRN PRN Reason: Constipation Stop: 02/18/20 10:41 Miscellaneous (Order Awaiting Action) 1 ea N/A QS [facility] Stop: 02/18/20 15:59 Last Admin: 01/20/20 23:39 Dose: Not Given Documented by: Miscellaneous (Carbohydrates For Hypoglycemia) 15 - 30 gm PO UD PRN PRN Reason: Hypoglycemia Treatment Stop: 02/18/20 11:14 Miscellaneous Information (Consult Glycemic Management Pharmacy) 1 ea N/A UD PRN PRN Reason: Consult Stop: 02/18/20 11:07 Multivitamins (Multivitamin Tab) 1 tab PO QAM [facility] Stop: 02/19/20 08:59 Last Admin: 01/20/20 08:10 Dose: Not Given Documented by: Naloxone HCl (Narcan) 0.1 mg IV Q5M PRN PRN Reason: Oversedation/Resp Depression Stop: 02/18/20 10:41 Ondansetron HCl (Zofran) 4 mg IV Q6H PRN PRN Reason: Nausea And Vomiting Stop: 02/18/20 10:41 Oxycodone HCl (Roxicodone Immediate Rel) 5 - 10 mg PO Q4H PRN PRN Reason: Pain or Pre PT Stop: 02/02/20 10:41 Last Admin: 01/20/20 18:14 Dose: 10 mg Documented by: Sennosides (Senokot) 17.2 mg PO HS [facility] Stop: 02/18/20 20:59 Last Admin: 01/20/20 20:23 Dose: 17.2 mg Documented by: Vitamin B Complex (Vitamin B Complex) 1 tab PO PM [facility] Stop: 02/18/20 20:59 Last Admin: 01/20/20 20:24 Dose: 1 tab Documented by: Vitamin D (Vitamin D3) 1,000 units PO HS [facility] Stop: 02/18/20 20:59 Last Admin: 01/20/20 20:23 Dose: 1,000 units Documented by: PG Care Time/CCT Total # of Minutes Spent Total Time Spent with Patient: Total time spent is greater than 50% in coordination of care (as documented) at patient's floor/unit and/or counseling patient: Coding Level of Care Code 94734 Subseq Hosp Care Lvl 2 Diagnoses HTN (hypertension) I10 DM type 2 (diabetes mellitus, type 2) E11.9 S/P total knee arthroplasty Z96.659
[2020-01-21] MEDS: ACETAMINOPHEN 500 MG TAB PO SCH ×2 (05:34→14:19)
[2020-01-21] MEDS: INSULIN ASPART 100 UNITS/ML 3 ML PEN SC SCH ×2 (07:07→12:26)
[2020-01-21] MEDS: CANDESARTAN: ORDER AWAITING ACTION SCH (07:09)
[2020-01-21] MEDS: OXYCODONE HCL IR 5 MG TAB (IMMEDIATE RELEASE) PO PRN ×2 (07:29→11:28)
[2020-01-21] MEDS: hydroCHLOROthiazide 25 MG TAB PO SCH (07:31)
[2020-01-21] MEDS: ASPIRIN 81 MG ECTAB PO SCH (07:31)
[2020-01-21 07:32] LABS: Hematocrit (blood only) 34.7 % (37-47); Hemoglobin 10.8 g/dL (12.0-16.0); Mean Corpuscular Hemoglobin 29.2 pg (25-34); Mean Corpuscular Hgb Conc 31.1 g/dL (32-36); Mean Corpuscular Volume 93.8 fL (80-100); Mean Platelet Volume 10.1 fL (7.4-10.4); Platelet Count 224 K/uL (130-400); RDW Coefficient of Variation 13.8 % (11.5-14.5); RDW Standard Deviation 47.3 fL (36.4-46.3)
[2020-01-21] MEDS: AMLODIPINE BESYLATE 5 MG TAB PO SCH (07:32)
[2020-01-21] MEDS: DOCUSATE SODIUM 100 MG CAP PO SCH (07:32)
[2020-01-21] MEDS: MULTIVITAMIN TAB PO SCH (07:33)
[2020-01-21] MEDS: ATORVASTATIN 40 MG TAB PO SCH (07:33)
[2020-01-21] MEDS ORDERED: METFORMIN HCL 500 MG TAB PO SCH (08:00)
[2020-01-21 08:02] LABS: BUN Creatinine Ratio 15.5 (10-20); Calcium 8.7 mg/dl (8.5-10.1); Creatinine Clr Calc Pharmacy 77.4 ml/min; Est GFR (African American) 87.7; Est GFR (Non-African American) 75.7; Potassium 3.6 mmol/L (3.5-5.1)
[2020-01-21] MEDS: CeleBREX 200 MG CAP PO SCH (08:15)
--- NOTE | 2020-01-21 08:47 | Orthopedic Progress Note ---
Date of Service January 21, 2020 Assessment & Plan (1) S/P total knee arthroplasty: POD #2, Right TKA PT/ OT DVT proph- ASA D/C planning- To [facility] test taken and must be resulted for patient to return to [facility]. Awaiting results. As per medicine. AM labs as above Admission and Anticipated Discharge Date Admission Date: January 19, 2020 Subjective Patient currently sitting up in her chair at the bedside. She is sleeping upon arrival but is easily awoken. States that she is somewhat painful this morning has received her pain medications. No other complaints this morning. Denies shortness of breath, chest pain, lightheadedness. Physical Exam Physical Exam: Prevena dressing is clean, dry, and intact. Calves are soft nontender. Neurovascular intact. Toes are mobile. Results & Data ([facility]) Vital Signs (Past 12 Hours) Vital Signs Temp Pulse Resp BP Pulse Ox 01/21/20 06:50 36.5 C 80 15 120/71 96 01/20/20 23:05 37.1 C 82 15 137/76 93 Laboratory Results Laboratory Results WBC 10.40 K/uL (4.8-10.8) 01/21/20 07:20 RBC 3.70 M/uL (4.2-5.4) L 01/21/20 07:20 Hgb 10.8 g/dL (12.0-16.0) L 01/21/20 07:20 Hct 34.7 % (37-47) L 01/21/20 07:20 MCV 93.8 fL (80-100) 01/21/20 07:20 MCH 29.2 pg (25-34) 01/21/20 07:20 MCHC 31.1 g/dL (32-36) L 01/21/20 07:20 RDW Std Deviation 47.3 fL (36.4-46.3) H 01/21/20:20 RDW Coeff of Uvaldo 13.8 % (11.5-14.5) 01/21/20 07:20 Plt Count 224 K/uL (130-400) 01/21/20 07:20 MPV 10.1 fL (7.4-10.4) 01/21/20 07:20 Immature Gran % (Auto) 0.1 % 01/07/20 13:45 Neut % (Auto) 62.6 % 01/07/20 13:45 Lymph % (Auto) 26.1 % 01/07/20 13:45 [place] % (Auto) 9.3 % 01/07/20 13:45 Eos % (Auto) 1.3 % 01/07/20 13:45 Baso % (Auto) 0.6 % 01/07/20 13:45 Neut # (Auto) 4.25 K/uL (1.4-6.5) 01/07/20 13:45 Lymph # (Auto) 1.77 K/uL (1.2-3.4) 01/07/20 13:45 [place] # (Auto) 0.63 K/uL (0.11-0.59) H 01/07/20 13:45 Eos # (Auto) 0.09 K/uL (0-0.5) 01/07/20 13:45 Baso # (Auto) 0.04 K/uL (0-0.2) 01/07/20 13:45 Immature Gran # (Auto) 0.01 K/uL (0.00-0.02) 01/07/20 13:45 PT 10.7 Seconds (9.0-12.0) 01/07/20 13:45 INR 1.0 (0.9-1.1) 01/07/20 13:45 APTT 30.0 Seconds (21.0-31.0) 01/07/20 13:45 PTT Ratio 1.1 01/07/20 13:45 Sodium 138 mmol/L (136-145) 01/21/20 07:20 Potassium 3.6 mmol/L (3.5-5.1) 01/21/20 07:20 Chloride 106 mmol/L (98-107) 01/21/20 07:20 Carbon Dioxide 27 mmol/L (21-32) 01/21/20 07:20 Anion Gap 6.0 (3-11) 01/21/20 07:20 BUN 12 mg/dl (7-18) 01/21/20 07:20 Creatinine 0.76 mg/dl (0.6-1.2) 01/21/20 07:20 Est Cr Clr Drug Dosing 77.4 ml/min 01/21/20 07:20 Est GFR ( Amer) 87.7 01/21/20 07:20 Est GFR (Non-Af Amer) 75.7 01/21/20 07:20 BUN/Creatinine Ratio 15.5 (10-20) 01/21/20 07:20 Glucose 112 mg/dl (70-99) H 01/21/20 07:20 POC Glucose 119 mg/dl (70-99) H 01/21/20 06:43 Calcium 8.7 mg/dl (8.5-10.1) 01/21/20 07:20 Albumin 3.6 gm/dl (3.4-5.0) 01/07/20 13:45 Urine Color Yellow 01/07/20 13:45 Urine Appearance Clear (Clear) 01/07/20 13:45 Urine pH 6.0 (4.5-7.5) 01/07/20 13:45 Ur Specific [place] 1.015 (1.000-1.030) 01/07/20 13:45 Urine Protein Negative (Negative) 01/07/20 13:45 Urine Glucose (UA) Negative (Negative) 01/07/20 13:45 Urine Ketones Negative (Negative) 01/07/20 13:45 Urine Blood Negative (Negative) 01/07/20 13:45 Urine Nitrite Negative (Negative) 01/07/20 13:45 Urine Bilirubin Negative (Negative) 01/07/20 13:45 Urine Urobilinogen Negative (Negative) 01/07/20 13:45 Ur Leukocyte Esterase 2+ (Negative) H 01/07/20 13:45 Urine WBC (Auto) 10-30 /hpf (0-5) H 01/07/20 13:45 Urine RBC (Auto) 0-4 /hpf (0-4) 01/07/20 13:45 U Hyaline Cast (Auto) 1-5 /lpf (0-5) 01/07/20 13:45 U Epithel Cells (Auto) >30 /lpf (0-5) H 01/07/20 13:45 Urine Bacteria (Auto) Negative (Negative) 01/07/20 13:45 SARS-CoV-2 RNA (RT-PCR) Cancelled 01/20/20 Unknown Blood Type B Positive 01/07/20 13:45 Antibody Screen NEGATIVE 01/07/20 13:45
--- NOTE | 2020-01-21 12:19 | Pharmacy Report ---
Pharmacy Glycemic Sign Off Nt - Date of Service January 21, 2020 - Assessment & Plan ASSESSMENT: * Pharmacy was consulted by Al Rehman on 01/18 for glycemic control and to write orders per [facility] inpatient glycemic control protocol. * Major changes made by pharmacy to antidiabetic regimen include: * added novolog with CF only / added on home metformin * Patient has been receiving/requiring 0 units of insulin per day for adequate glycemic control * BSGs ranging 100-136 mg/dl * Regimen has only required minor adjustments over the past 48hrs to achieve this level of control * Do not anticipate further changes in patient status that would quickly deteriorate glycemic control (i.e. patient to be NPO for upcoming procedure, steroids tapering, starting tube feedings, etc). * Please see recommendations for outpatient antidiabetic regimen below. PLAN FOR INPATIENT GLYCEMIC CONTROL: No changes needed to current regimen. * No basal indicated * Continue NovoLog per scale ACHS/Q6hrs while NPO * Goal range = 110 - 150 mg/dl * CF = 30 mg/dl/unit * CR = 1 unit for ever -- g CHO consumed * Pharmacy is signing off of glycemic consult and will no longer be making adjustments to inpatient regimen. Please feel free to re-consult if needed. Thank you. DISCHARGE RECOMMENDATIONS: * A1c 6.2 % on 12/02/19 - would recommend continuation of home metformin on discharge
--- NOTE | 2020-01-30 22:54 | Discharge Summary (DS) ---
HISTORY OF PRESENT ILLNESS: This is a 79-year-old female patient of Dr. Guaman'yan complaining of chronic right knee pain, longstanding, progressively getting worse. The patient failed conservative treatment and elected to proceed with a right total knee arthroplasty. PAST MEDICAL HISTORY: TMJ, spine problems, sciatica, osteoarthritis. POSTOPERATIVE COURSE: The patient underwent a right total knee arthroplasty on 01/19/2020. She was followed closely with physical therapy, pain control, medical consultation and DVT prophylaxis in the form of aspirin. The patient did well postoperatively and was discharged on postoperative day #2. PHYSICAL EXAMINATION: On discharge, right knee superficial Prevena wound VAC was clean, dry and intact. There is no redness or drainage around the wound VAC. Her toes and ankle were mobile. She had no calf tenderness. Negative Homans sign. Neurologically and neurovascularly, she is intact in her right lower extremity. DIAGNOSES: Status post right total knee arthroplasty with application of superficial wound VAC, temporomandibular joint, spine problems, sciatica, osteoarthritis. PLAN: The patient was discharged to [facility] upon discharge. She will continue her preadmission medications with the addition of aspirin for DVT prophylaxis and pain medications. The patient will follow up as scheduled as an outpatient.
== END 2020-01-21 14:45 | DRG 470 ==
LOC: ASU 04:56 → 3E 09:24